=== PATIENT | female | born 1955 | race Caucasian/White ===

== ENCOUNTER 2017-05-21 09:17 | Emergency (ER) | payer MEDICAID ==
[~2017-05-21] VITALS: Ht 167.6 cm; Wt 120.0 kg
[~2017-05-21 09:17] MED LIST: ALPR-475 PO; ALPR1TAB2 PO; AMLO2.5T2 PO; ASPI-496 PO; ATOR80TA75 PO; CARV-39 PO; CYCL5TAB PO; DEXA4TAB PO; FENT1PAT77 TD; LISI-424 PO; METO25TA91 PO; OMEP20CA9 PO; OXYC20TA2 PO; PRAS10TA4 PO; SERT50TA PO; TRAM50TA2 PO; [UNRECOGNIZED DRUG - CODE]; [UNRECOGNIZED DRUG - OTHER] PO
[2017-05-21 09:20] VITALS: BP 113/74
[2017-05-21] MEDS ORDERED: SIMV80TA3 PO (09:45)
[2017-05-21] MEDS ORDERED: ALPR1TAB2 PO (09:45)
[2017-05-21] MEDS ORDERED: PRAS10TA4 PO (09:45)
[2017-05-21] MEDS ORDERED: METF500T4 PO (09:45)
[2017-05-21] MEDS ORDERED: SODIUM CHLORIDE 0.9% 1,000 ML IV ONE (10:02)
[2017-05-21] MEDS ORDERED: SODIUM CHLORIDE FLUSH 10ML SYR IVF ONE (10:30)
[2017-05-21] MEDS ORDERED: ONDANSETRON 2MG/ML, 2ML IVPush ONE (10:30)
[2017-05-21] MEDS ORDERED: SODIUM CHLORIDE 0.9% 1,000ML IVBOLUS ONE (10:30)
[2017-05-21] MEDS ORDERED: KETOROLAC 30 MG/1 ML IVPush ONE (10:30)
[2017-05-21] MEDS ORDERED: ONDANSETRON 2MG/ML, 2ML ONE (10:35)
[2017-05-21] MEDS ORDERED: KETOROLAC 30 MG/1 ML ONE ×2 (10:35→11:40)
[2017-05-21 10:47] LABS: ASPARTATE AMINO TRANSFERASE 13 U/L (15-37); BLOOD UREA NITROGEN 13 mg/dL (7-18)
[2017-05-21 10:55] LABS: IS PT STATUS REG ER OR PRE ER? YES
[2017-05-21] MEDS ORDERED: ONDANSETRON ODT 4 MG ONE (11:40)
[2017-05-21] MEDS ORDERED: ONDANSETRON ODT 4 MG PO ONE (12:00)
[2017-05-21] MEDS ORDERED: KETOROLAC 30 MG/1 ML IM ONE (12:00)
[2017-05-21] MEDS ORDERED: HYDROmorphone 1 MG/ML, 1ML IM ONE (12:30)
[2017-05-21] MEDS ORDERED: HYDROmorphone 1 MG/ML, 1ML ONE (12:52)
== END 2017-05-21 13:04 | disposition home or self-care (01) ==
LOC: ED 09:36
DX: M79.1 Myalgia (principal); G89.29 Other chronic pain; I10 Essential (primary) hypertension; E11.9 Type 2 diabetes mellitus without complications; R11.2 Nausea with vomiting, unspecified
CPT/HCPCS: 36415; 71010; 80053; 81003; 82140; 83605; 84484; 85025; 93005; 96372; 99285; J1170; J1885; Q0162

== ENCOUNTER 2017-06-12 00:55 | Emergency (ER) | payer MEDICAID ==
[~2017-06-12] VITALS: Ht 167.6 cm; Wt 116.4 kg
[~2017-06-12 00:55] MED LIST changes: +METF500T4 PO; +SIMV80TA3 PO
[2017-06-12] MEDS ORDERED: HYDROcodone/APAP 5/325 TABLET PO PRN (01:30)
[2017-06-12] MEDS ORDERED: HYDROcodone/APAP 5/325 TABLET ONE ×2 (01:51→02:58)
[2017-06-12 03:01] VITALS: BP 139/89
== END 2017-06-12 03:03 | disposition home or self-care (01) ==
LOC: ED 02:57
DX: S16.1XXA Strain of muscle, fascia and tendon at neck level, initial encounter (principal); S39.012A Strain of muscle, fascia and tendon of lower back, initial encounter; S09.90XA Unspecified injury of head, initial encounter; K21.9 Gastro-esophageal reflux disease without esophagitis; I10 Essential (primary) hypertension; E11.9 Type 2 diabetes mellitus without complications; Y04.0XXA Assault by unarmed brawl or fight, initial encounter
CPT/HCPCS: 70450; 72110; 72125; 99284

== ENCOUNTER 2017-07-06 07:22 | Emergency (ER) | payer MEDICAID ==
[~2017-07-06] VITALS: Ht 167.6 cm; Wt 121.5 kg
[2017-07-06 07:26] VITALS: BP 172/108
[2017-07-06] MEDS ORDERED: KETOROLAC 30 MG/1 ML IM ONE (08:00)
[2017-07-06] MEDS ORDERED: OXYcodone/APAP 10/325MG TABLET PO ONE (08:00)
[2017-07-06] MEDS ORDERED: DIAZEPAM 5 MG TABLET PO ONE (08:00)
[2017-07-06] MEDS ORDERED: ONDANSETRON ODT 4 MG PO ONE (08:00)
[2017-07-06] MEDS ORDERED: HYDROmorphone 1 MG/ML, 1ML IM ONE (09:00)
== END 2017-07-06 09:16 | disposition home or self-care (01) ==
LOC: ED 09:10
DX: S39.012A Strain of muscle, fascia and tendon of lower back, initial encounter (principal); M54.2 Cervicalgia; E11.9 Type 2 diabetes mellitus without complications; I10 Essential (primary) hypertension; K21.9 Gastro-esophageal reflux disease without esophagitis; I25.2 Old myocardial infarction; W18.39XA Other fall on same level, initial encounter; Y93.89 Activity, other specified; Y92.89 Other specified places as the place of occurrence of the external cause; Y99.8 Other external cause status
CPT/HCPCS: 96372; 99284; J1170; J1885; J7512; Q0162

== ENCOUNTER 2017-10-26 23:10 | Inpatient (IN) | payer MEDICAID ==
[~2017-10-26] VITALS: Ht 167.6 cm; Wt 117.8 kg
[~2017-10-26 23:10] MED LIST changes: +ATOR-2 PO; -ATOR80TA75 PO
[2017-10-26] MEDS ORDERED: ONDANSETRON 2MG/ML, 2ML IVPush ONE (23:30)
[2017-10-26] MEDS ORDERED: HYDROmorphone 1 MG/ML, 1ML IM PRN (23:30)
[2017-10-26 23:47] LABS: HEMATOCRIT 37.9 % (34.6-47.8); HEMOGLOBIN 12.6 g/dL (11.7-16.4); WHITE BLOOD COUNT 8.1 x10^3/uL (3.4-10)
[2017-10-26] MEDS ORDERED: morphine SULFATE 10 MG/ML, 1ML ONE (23:47)
[2017-10-26] MEDS ORDERED: ONDANSETRON 2MG/ML, 2ML ONE (23:47)
[2017-10-26 23:56] LABS: BLOOD UREA NITROGEN 10 mg/dL (7-18)
[2017-10-26] MEDS: MORPHINE SULFATE 4 MG/ML, 1ML IVPush PRN (23:59)
[2017-10-27 00:01] LABS: IS PT STATUS REG ER OR PRE ER? YES
[2017-10-27] MEDS ORDERED: NITROGLYCERIN OINT 2%, 1GM TP ONE ×2 (00:28→00:30)
[2017-10-27] MEDS ORDERED: morphine SULFATE 10 MG/ML, 1ML ONE ×2 (00:29→02:17)
[2017-10-27] MEDS: MORPHINE SULFATE 4 MG/ML, 1ML IVPush PRN (00:45)
[2017-10-27] MEDS ORDERED: POTASSIUM CHLORIDE 20 MEQ TAB.ER.PRT PO ONE (01:00)
[2017-10-27] MEDS ORDERED: hydrALAzine 20 MG/ML, 1ML IV PRN (01:00)
[2017-10-27] MEDS ORDERED: BISACODYL 10 MG SUPP PR PRN (01:00)
[2017-10-27] MEDS ORDERED: OXYCODONE HCL 30 MG PO SCH (01:00)
[2017-10-27] MEDS ORDERED: POLYETHYLENE GLYCOL 17 GM PACKET PO PRN (01:00)
[2017-10-27] MEDS ORDERED: NITROGLYCERIN 0.4 MG BOTTLE (25 TABS) SL PRN (01:00)
[2017-10-27] MEDS ORDERED: SIMVASTATIN 40 MG TABLET PO SCH (01:00)
[2017-10-27 01:40] VITALS: BP 145/91
[2017-10-27] MEDS: OXYCODONE MC SCH ×2 (02:00→03:00)
[2017-10-27] MEDS: HEPARIN 5,000 UNITS/ML, 1ML SQ SCH ×3 (02:21→18:30)
[2017-10-27] MEDS: morphine SULFATE 10 MG/ML, 1ML IVPush PRN ×4 (02:38→18:30)
[2017-10-27] MEDS: OXYcodone IR 5MG TABLET PO PRN ×4 (04:23→21:37)
[2017-10-27] MEDS ORDERED: TEMPLATE NON-FORMULARY MED. (Oxycodone Hcl** 20 MG) PO PRN (05:00)
[2017-10-27 06:18] LABS: IS PT STATUS REG ER OR PRE ER? NO
[2017-10-27 07:36] VITALS: BP 124/80
[2017-10-27] MEDS: SENNA/DOCUSATE TABLET PO SCH (08:31)
[2017-10-27] MEDS: PRASUGREL 10 MG TABLET PO SCH (08:33)
[2017-10-27] MEDS: ASPIRIN 81 MG TABLET EC PO SCH (08:33)
[2017-10-27] MEDS: OMEPRAZOLE 20 MG CAPSULE.DR PO SCH ×2 (08:33→21:37)
[2017-10-27] MEDS: metFORMIN 500 MG TABLET PO SCH ×2 (08:33→21:37)
[2017-10-27] MEDS: ALPRazolam 1MG TABLET PO SCH (08:33)
[2017-10-27] MEDS: CARVEDILOL 25 MG TABLET PO SCH ×2 (08:33→21:37)
[2017-10-27] MEDS: SODIUM CHLORIDE FLUSH 10ML SYR IVF SCH ×2 (08:33→21:00)
[2017-10-27] MEDS: LISINOPRIL 10 MG TABLET PO SCH (08:34)
[2017-10-27] MEDS: SERTRALINE 100MG TABLET PO SCH (09:00)
[2017-10-27 11:33] LABS: IS PT STATUS REG ER OR PRE ER? NO
[2017-10-27 13:00] VITALS: BP 137/80
[2017-10-27] MEDS: ACETAMINOPHEN 325 MG TABLET PO PRN (18:30)
[2017-10-27 19:46] VITALS: BP 132/81
[2017-10-27] MEDS: SIMVASTATIN 20 MG TABLET PO SCH (21:37)
[2017-10-27] MEDS: RANOLAZINE 500 MG TAB.ER.12H PO SCH (22:34)
[2017-10-28] MEDS: morphine SULFATE 10 MG/ML, 1ML IVPush PRN (00:24)
[2017-10-28] MEDS: OXYcodone IR 5MG TABLET PO PRN ×4 (01:49→22:07)
[2017-10-28] MEDS: HEPARIN 5,000 UNITS/ML, 1ML SQ SCH ×3 (01:50→17:40)
[2017-10-28 01:55] VITALS: BP 144/89
[2017-10-28] MEDS: ACETAMINOPHEN 325 MG TABLET PO PRN (05:41)
[2017-10-28] MEDS: ASPIRIN 81 MG TABLET EC PO SCH (05:41)
[2017-10-28 07:58] VITALS: BP 138/80
[2017-10-28] MEDS: RANOLAZINE 500 MG TAB.ER.12H PO SCH ×2 (08:56→22:07)
[2017-10-28] MEDS: PRASUGREL 10 MG TABLET PO SCH (08:57)
[2017-10-28] MEDS: OMEPRAZOLE 20 MG CAPSULE.DR PO SCH ×2 (08:57→22:07)
[2017-10-28] MEDS: LISINOPRIL 10 MG TABLET PO SCH (08:57)
[2017-10-28] MEDS: ALPRazolam 1MG TABLET PO SCH (08:57)
[2017-10-28] MEDS: metFORMIN 500 MG TABLET PO SCH ×2 (08:57→22:07)
[2017-10-28] MEDS: SERTRALINE 100MG TABLET PO SCH (08:57)
[2017-10-28] MEDS: CARVEDILOL 25 MG TABLET PO SCH ×2 (08:57→22:07)
[2017-10-28] MEDS: SODIUM CHLORIDE FLUSH 10ML SYR IVF SCH ×2 (09:00→22:06)
[2017-10-28] MEDS: SENNA/DOCUSATE TABLET PO SCH (09:00)
[2017-10-28 15:09] VITALS: BP 119/77
[2017-10-28 19:46] VITALS: BP 119/77
[2017-10-28] MEDS: SIMVASTATIN 20 MG TABLET PO SCH (22:07)
[2017-10-29] MEDS: ONDANSETRON 2MG/ML, 2ML IVPush PRN ×2 (01:01→16:32)
[2017-10-29 01:12] VITALS: BP 103/68
[2017-10-29] MEDS: HEPARIN 5,000 UNITS/ML, 1ML SQ SCH ×3 (02:30→16:32)
[2017-10-29] MEDS: OXYcodone IR 5MG TABLET PO PRN ×2 (05:00→09:10)
[2017-10-29 08:07] VITALS: BP 120/70
[2017-10-29] MEDS: SENNA/DOCUSATE TABLET PO SCH (09:00)
[2017-10-29] MEDS: RANOLAZINE 500 MG TAB.ER.12H PO SCH ×2 (09:09→21:59)
[2017-10-29] MEDS: SODIUM CHLORIDE FLUSH 10ML SYR IVF SCH ×2 (09:09→21:39)
[2017-10-29] MEDS: metFORMIN 500 MG TABLET PO SCH ×2 (09:09→21:39)
[2017-10-29] MEDS: LISINOPRIL 10 MG TABLET PO SCH (09:10)
[2017-10-29] MEDS: CARVEDILOL 25 MG TABLET PO SCH ×2 (09:10→21:39)
[2017-10-29] MEDS: PRASUGREL 10 MG TABLET PO SCH (09:10)
[2017-10-29] MEDS: OMEPRAZOLE 20 MG CAPSULE.DR PO SCH ×2 (09:10→21:39)
[2017-10-29] MEDS: SERTRALINE 100MG TABLET PO SCH (09:10)
[2017-10-29] MEDS: ASPIRIN 81 MG TABLET EC PO SCH (09:10)
[2017-10-29] MEDS: ALPRazolam 1MG TABLET PO SCH (09:10)
[2017-10-29 14:29] LABS: ABG COLLECTION SITE RIGHT BRACHIAL
[2017-10-29 16:21] VITALS: BP 107/71
[2017-10-29] MEDS: ACETAMINOPHEN 325 MG TABLET PO PRN (16:32)
[2017-10-29 19:59] VITALS: BP 112/76
[2017-10-29] MEDS: SIMVASTATIN 20 MG TABLET PO SCH (21:39)
[2017-10-30 01:39] VITALS: BP 120/73
[2017-10-30] MEDS: HEPARIN 5,000 UNITS/ML, 1ML SQ SCH ×2 (02:30→10:30)
[2017-10-30 07:49] VITALS: BP 109/68
[2017-10-30 08:08] LABS: ABG COLLECTION SITE LEFT RADIAL; COLLATERAL CIRCULATION TESTING NORMAL
[2017-10-30] MEDS: SODIUM CHLORIDE FLUSH 10ML SYR IVF SCH (08:13)
[2017-10-30] MEDS: CARVEDILOL 25 MG TABLET PO SCH (08:13)
[2017-10-30] MEDS: ASPIRIN 81 MG TABLET EC PO SCH (08:13)
[2017-10-30] MEDS: PRASUGREL 10 MG TABLET PO SCH (08:14)
[2017-10-30] MEDS: metFORMIN 500 MG TABLET PO SCH (08:14)
[2017-10-30] MEDS: SERTRALINE 100MG TABLET PO SCH (08:15)
[2017-10-30] MEDS: ACETAMINOPHEN 325 MG TABLET PO PRN ×2 (08:15→13:11)
[2017-10-30] MEDS: RANOLAZINE 500 MG TAB.ER.12H PO SCH (08:15)
[2017-10-30] MEDS: LISINOPRIL 10 MG TABLET PO SCH (08:15)
[2017-10-30] MEDS: SENNA/DOCUSATE TABLET PO SCH (08:15)
[2017-10-30] MEDS: OMEPRAZOLE 20 MG CAPSULE.DR PO SCH (08:15)
[2017-10-30] MEDS: ALPRazolam 1MG TABLET PO SCH (09:00)
[2017-10-30] MEDS ORDERED: SIMV20TA3 PO (12:46)
[2017-10-30] MEDS ORDERED: RANO500T2 PO (12:46)
== END 2017-10-30 13:45 | disposition home or self-care (01) | DRG 303 ==
LOC: ED 23:59 → EDIP 10-27 00:52 → 5SO 10-27 01:31 → 3NE 10-29 19:28
PROVIDERS: ADMIT Hospitalist; ATTEND Hospitalist
DX: I25.110 Atherosclerotic heart disease of native coronary artery with unstable angina pectoris (principal); J96.10 Chronic respiratory failure, unspecified whether with hypoxia or hypercapnia; E44.1 Mild protein-calorie malnutrition; E66.01 Morbid (severe) obesity due to excess calories; I11.0 Hypertensive heart disease with heart failure; I50.9 Heart failure, unspecified; Z68.41 Body mass index [BMI] 40.0-44.9, adult; E11.9 Type 2 diabetes mellitus without complications; E66.9 Obesity, unspecified; E87.6 Hypokalemia; F41.1 Generalized anxiety disorder; G47.10 Hypersomnia, unspecified; G47.33 Obstructive sleep apnea (adult) (pediatric); K21.9 Gastro-esophageal reflux disease without esophagitis; M85.80 Other specified disorders of bone density and structure, unspecified site; K44.9 Diaphragmatic hernia without obstruction or gangrene; M79.7 Fibromyalgia; I25.2 Old myocardial infarction; Z79.82 Long term (current) use of aspirin; Z83.3 Family history of diabetes mellitus; Z91.19 Patient's noncompliance with other medical treatment and regimen; Z95.5 Presence of coronary angioplasty implant and graft; Z88.8 Allergy status to other drugs, medicaments and biological substances
CPT/HCPCS: 36415; 36600; 71010; 80048; 82040; 82803; 83036; 84484; 85025; 93005; 96374; 96375; J1644; J2405; J2270

== ENCOUNTER 2017-11-28 19:43 | Emergency (ER) | payer MEDICAID ==
[~2017-11-28] VITALS: Ht 167.6 cm; Wt 114.3 kg
[~2017-11-28 19:43] MED LIST changes: +RANO500T2 PO; +SIMV20TA3 PO
[2017-11-28] MEDS ORDERED: ASPIRIN 81 MG TABLET CHEW ONE (21:23)
[2017-11-28] MEDS ORDERED: SODIUM CHLORIDE FLUSH 10ML SYR IVF ONE (21:30)
[2017-11-28] MEDS ORDERED: ASPIRIN 81 MG TABLET CHEW PO ONE (21:30)
[2017-11-28 21:37] LABS: BASOPHILS # (AUTO) 0.02 x10^3/uL (0-0.1); BASOPHILS % (AUTO) 0 % (0-1); EOSINOPHILS # (AUTO) 0.16 x10^3/uL (0-0.4); EOSINOPHILS % (AUTO) 2 % (1-7); LYMPHOCYTES # (AUTO) 1.54 x10^3/uL (1-3.4); LYMPHOCYTES % (AUTO) 18 % (22-44); MD NO; MEAN CORPUSCULAR HEMOGLOBIN 27.8 pg (27.0-34.8); MEAN CORPUSCULAR HGB CONC 32.8 g/dL (32.4-35.8); MEAN CORPUSCULAR VOLUME 84.7 fL (80-100); MONOCYTES # (AUTO) 0.43 x10^3/uL (0.2-0.8); MONOCYTES % (AUTO) 5 % (2-9); NEUTROPHILS # (AUTO) 6.64 x10^3/uL (1.8-6.8); NEUTROPHILS % (AUTO) 76 % (42-75); PLATELET COUNT 252 x10^3/uL (130-400); RED BLOOD COUNT 4.99 x10^6/uL (3.82-5.3); RED CELL DISTRIBUTION WIDTH 15.5 % (9.6-15.2)
[2017-11-28 21:46] LABS: INTERNATIONAL NORMALIZED RATIO 0.98 (0.93-1.1); PROTHROMBIN TIME 10.2 Seconds (9.6-11.5)
[2017-11-28 21:50] LABS: ALANINE AMINOTRANSFERASE 14 U/L (12-78); ALBUMIN 3.3 g/dL (3.4-5.0); ANION GAP 5 mmol/L (5-15); CALCIUM 8.6 mg/dL (8.5-10.1); CHLORIDE 109 mmol/L (98-107); CREATININE 0.54 mg/dL (0.55-1.02)
[2017-11-28 21:54] LABS: ALKALINE PHOSPHATASE 93 U/L (45-117); TOTAL PROTEIN 7.3 g/dL (6.4-8.2); TROPONIN I 0.023 ng/mL (0.000-0.045)
[2017-11-28 21:55] LABS: BILIRUBIN,TOTAL < 0.1 mg/dL (0.2-1.0)
[2017-11-28] MEDS ORDERED: ONDANSETRON 2MG/ML, 2ML IVPush ONE (22:30)
[2017-11-28] MEDS ORDERED: ONDANSETRON 2MG/ML, 2ML ONE ×2 (22:31→22:40)
[2017-11-28] MEDS ORDERED: MORPHINE SULFATE 4 MG/ML, 1ML ONE ×3 (22:31→23:48)
[2017-11-28] MEDS: MORPHINE SULFATE 4 MG/ML, 1ML IVPush PRN ×2 (22:41→23:54)
[2017-11-29 00:41] LABS: TROPONIN I 0.023 ng/mL (0.000-0.045)
[2017-11-29 02:02] VITALS: BP 160/89
== END 2017-11-29 02:04 | disposition home or self-care (01) ==
LOC: ED 20:54
DX: M54.6 Pain in thoracic spine (principal); R07.9 Chest pain, unspecified; G89.4 Chronic pain syndrome; E11.9 Type 2 diabetes mellitus without complications; I11.9 Hypertensive heart disease without heart failure; I25.2 Old myocardial infarction; K21.9 Gastro-esophageal reflux disease without esophagitis; Z79.82 Long term (current) use of aspirin; Z98.1 Arthrodesis status
CPT/HCPCS: 36415; 71045; 72125; 80053; 83690; 84484; 85025; 85610; 85730; 93005; 96374; 96375; 96376; 99285; J2405

== ENCOUNTER 2017-12-27 12:33 | Emergency (ER) | payer MEDICAID ==
[~2017-12-27] VITALS: Ht 154.9 cm; Wt 116.0 kg
[2017-12-27 12:41] VITALS: BP 161/124
[2017-12-27] MEDS ORDERED: GABA300C10 PO (13:36)
[2017-12-27] MEDS ORDERED: METH750T87 PO (13:36)
[2017-12-27] MEDS ORDERED: RANI300C PO (13:36)
[2017-12-27] MEDS ORDERED: HYDROcodone/APAP 5/325 TABLET ONE (13:43)
[2017-12-27] MEDS ORDERED: HYDROcodone/APAP 5/325 TABLET PO ONE (14:00)
[2017-12-27] MEDS ORDERED: METHOCARBAMOL 750 MG TABLET PO ONE (14:00)
[2017-12-27] MEDS ORDERED: METHOCARBAMOL 750 MG TABLET ONE (14:02)
[2017-12-27] MEDS ORDERED: KETOROLAC 30 MG/1 ML ONE (14:48)
[2017-12-27] MEDS ORDERED: KETOROLAC 30 MG/1 ML IM ONE (15:00)
== END 2017-12-27 15:27 | disposition home or self-care (01) ==
LOC: ED 15:20
DX: S16.1XXA Strain of muscle, fascia and tendon at neck level, initial encounter (principal); M25.512 Pain in left shoulder; E11.9 Type 2 diabetes mellitus without complications; I10 Essential (primary) hypertension; K21.9 Gastro-esophageal reflux disease without esophagitis; I25.2 Old myocardial infarction; X58.XXXA Exposure to other specified factors, initial encounter; Y93.89 Activity, other specified; Y99.8 Other external cause status; Y92.89 Other specified places as the place of occurrence of the external cause
CPT/HCPCS: 73030; 96372; 99284; J1885

== ENCOUNTER 2018-02-13 19:21 | Inpatient (IN) | payer MEDICAID ==
[2018-02-12 23:40] VITALS: BP 142/83
[~2018-02-13] VITALS: Ht 167.6 cm; Wt 119.5 kg
[~2018-02-13 19:21] MED LIST changes: +GABA300C10 PO; +METH750T87 PO; +RANI300C PO
[2018-02-13] MEDS ORDERED: ACETAMINOPHEN 325 MG TABLET PO ONE (19:30)
[2018-02-13] MEDS ORDERED: PLEASE ENTER HEIGHT AND WEIGHT MC SCH (20:00)
[2018-02-13 20:32] LABS: BASOPHILS % (AUTO) 0 % (0-1); EOSINOPHILS % (AUTO) 3 % (1-7); LYMPHOCYTES # (AUTO) 1.11 x10^3/uL (1-3.4); LYMPHOCYTES % (AUTO) 15 % (22-44); MD NO; MEAN CORPUSCULAR HEMOGLOBIN 29.9 pg (27.0-34.8); MEAN CORPUSCULAR HGB CONC 33.9 g/dL (32.4-35.8); MEAN CORPUSCULAR VOLUME 88.4 fL (80-100); MEAN PLATELET VOLUME 9.1 fL (7.4-10.4); MONOCYTES # (AUTO) 0.26 x10^3/uL (0.2-0.8); MONOCYTES % (AUTO) 4 % (2-9); NEUTROPHILS # (AUTO) 5.65 x10^3/uL (1.8-6.8); NEUTROPHILS % (AUTO) 78 % (42-75); PLATELET COUNT 197 x10^3/uL (130-400); RED BLOOD COUNT 4.01 x10^6/uL (3.82-5.3); RED CELL DISTRIBUTION WIDTH 16.4 % (9.6-15.2)
[2018-02-13] MEDS ORDERED: ACETAMINOPHEN 325 MG TABLET ONE (20:39)
[2018-02-13 20:42] LABS: ALANINE AMINOTRANSFERASE 14 U/L (12-78); ALBUMIN 3.2 g/dL (3.4-5.0); ANION GAP 5 mmol/L (5-15); CALCIUM 8.5 mg/dL (8.5-10.1); CHLORIDE 103 mmol/L (98-107); CREATININE 0.68 mg/dL (0.55-1.02)
[2018-02-13 20:44] LABS: ALKALINE PHOSPHATASE 71 U/L (45-117); BILIRUBIN,TOTAL 0.4 mg/dL (0.2-1.0); TOTAL PROTEIN 6.8 g/dL (6.4-8.2); TROPONIN I 0.066 ng/mL (0.000-0.045)
[2018-02-13] MEDS ORDERED: NITROGLYCERIN 0.4 MG BOTTLE (25 TABS) SL PRN (22:30)
[2018-02-13] MEDS ORDERED: BISACODYL 10 MG SUPP PR PRN (22:30)
[2018-02-13] MEDS ORDERED: hydrALAzine 20 MG/ML, 1ML IVPush PRN (22:30)
[2018-02-13] MEDS ORDERED: POLYETHYLENE GLYCOL 17 GM PACKET PO PRN (22:30)
[2018-02-13] MEDS ORDERED: ONDANSETRON ODT 4 MG PO PRN (22:30)
[2018-02-13 22:45] LABS: HEMOGLOBIN A1C 5.5 % (4.2-6.3)
[2018-02-14] MEDS ORDERED: FAMOTIDINE 20 MG TABLET ONE (00:04)
[2018-02-14] MEDS: GABAPENTIN 400 MG CAPSULE PO SCH ×4 (00:09→20:15)
[2018-02-14] MEDS: METHOCARBAMOL 750 MG TABLET PO SCH ×4 (00:10→20:16)
[2018-02-14] MEDS: CARVEDILOL 25 MG TABLET PO SCH ×3 (00:10→20:16)
[2018-02-14] MEDS: SIMVASTATIN 20 MG TABLET PO SCH ×2 (00:10→20:15)
[2018-02-14] MEDS: FAMOTIDINE 40 MG TABLET PO SCH ×4 (00:11→20:15)
[2018-02-14] MEDS: morphine SULFATE 10 MG/ML, 1ML IVPush PRN ×5 (00:12→23:49)
[2018-02-14] MEDS: HEPARIN 5,000 UNITS/ML, 1ML SQ SCH ×3 (00:12→16:00)
[2018-02-14] MEDS: SODIUM CHLORIDE FLUSH 10ML SYR IVF SCH ×3 (00:12→20:17)
[2018-02-14] MEDS: ACETAMINOPHEN 325 MG TABLET PO PRN ×3 (02:18→13:14)
[2018-02-14 02:25] VITALS: BP 135/82
[2018-02-14 03:06] LABS: TROPONIN I 0.048 ng/mL (0.000-0.045)
[2018-02-14 04:57] LABS: BASOPHILS % (AUTO) 0 % (0-1); EOSINOPHILS # (AUTO) 0.24 x10^3/uL (0-0.4); EOSINOPHILS % (AUTO) 4 % (1-7); LYMPHOCYTES # (AUTO) 1.35 x10^3/uL (1-3.4); LYMPHOCYTES % (AUTO) 21 % (22-44); MD NO; MEAN CORPUSCULAR HEMOGLOBIN 29.7 pg (27.0-34.8); MEAN CORPUSCULAR HGB CONC 33.3 g/dL (32.4-35.8); MEAN CORPUSCULAR VOLUME 89.1 fL (80-100); MEAN PLATELET VOLUME 9.1 fL (7.4-10.4); MONOCYTES # (AUTO) 0.31 x10^3/uL (0.2-0.8); MONOCYTES % (AUTO) 5 % (2-9); NEUTROPHILS # (AUTO) 4.56 x10^3/uL (1.8-6.8); NEUTROPHILS % (AUTO) 71 % (42-75); PLATELET COUNT 220 x10^3/uL (130-400); RED BLOOD COUNT 4.01 x10^6/uL (3.82-5.3); RED CELL DISTRIBUTION WIDTH 15.9 % (9.6-15.2)
[2018-02-14 04:59] LABS: ALANINE AMINOTRANSFERASE 13 U/L (12-78); ANION GAP 5 mmol/L (5-15); CALCIUM 8.5 mg/dL (8.5-10.1); CHLORIDE 104 mmol/L (98-107); CREATININE 0.76 mg/dL (0.55-1.02)
[2018-02-14 05:02] LABS: ALKALINE PHOSPHATASE 75 U/L (45-117); BILIRUBIN,TOTAL 0.7 mg/dL (0.2-1.0); TOTAL PROTEIN 6.4 g/dL (6.4-8.2)
[2018-02-14 07:47] VITALS: BP 176/89
[2018-02-14] MEDS ORDERED: MORPHINE SULFATE 4 MG/ML, 1ML ONE (07:51)
[2018-02-14] MEDS: SENNA/DOCUSATE TABLET PO SCH (09:00)
[2018-02-14 09:12] LABS: TROPONIN I 0.043 ng/mL (0.000-0.045)
[2018-02-14] MEDS ORDERED: SODIUM CHLORIDE 0.9% 1,000 ML IV ONE (09:12)
[2018-02-14] MEDS: ASPIRIN 81 MG TABLET EC PO SCH (09:21)
[2018-02-14] MEDS: PRASUGREL 10 MG TABLET PO SCH (09:22)
[2018-02-14] MEDS: ALPRazolam 1MG TABLET PO SCH (09:22)
[2018-02-14] MEDS: LISINOPRIL 10 MG TABLET PO SCH (09:22)
[2018-02-14 11:26] LABS: INTERNATIONAL NORMALIZED RATIO 0.98 (0.93-1.1); PROTHROMBIN TIME 10.2 Seconds (9.6-11.5)
[2018-02-14 13:04] VITALS: BP 144/86
[2018-02-14] MEDS ORDERED: HEPARIN 1,000 UNITS/ML, 10ML ONE (15:41)
[2018-02-14] MEDS ORDERED: BIVALIRUDIN 250 MG ONE ×2 (15:41→15:49)
[2018-02-14] MEDS ORDERED: TICAGRELOR 90 MG TABLET ONE (15:41)
[2018-02-14] MEDS ORDERED: VERAPAMIL 2.5 MG/ML, 2ML ONE (15:41)
[2018-02-14] MEDS ORDERED: FENTANYL PF 100 MCG/2ML ONE (15:41)
[2018-02-14] MEDS ORDERED: MIDAZOLAM 1 MG/ML, 5ML ONE (15:41)
[2018-02-14] MEDS ORDERED: LIDOCAINE 2%, 2ML ONE (15:49)
[2018-02-14] MEDS ORDERED: LIDOCAINE-MPF 2% ,5ML ONE (16:18)
[2018-02-14 18:32] VITALS: BP 143/99
[2018-02-15 00:29] VITALS: BP 134/83
[2018-02-15] MEDS: HEPARIN 5,000 UNITS/ML, 1ML SQ SCH ×2 (00:33→08:38)
[2018-02-15] MEDS: morphine SULFATE 10 MG/ML, 1ML IVPush PRN ×2 (04:31→07:14)
[2018-02-15 05:11] LABS: ANION GAP 4 mmol/L (5-15); CALCIUM 8.8 mg/dL (8.5-10.1); CHLORIDE 101 mmol/L (98-107); CREATININE 0.71 mg/dL (0.55-1.02)
[2018-02-15 05:15] LABS: BASOPHILS # (AUTO) 0.02 x10^3/uL (0-0.1); BASOPHILS % (AUTO) 0 % (0-1); EOSINOPHILS # (AUTO) 0.14 x10^3/uL (0-0.4); EOSINOPHILS % (AUTO) 3 % (1-7); LYMPHOCYTES # (AUTO) 1.16 x10^3/uL (1-3.4); LYMPHOCYTES % (AUTO) 21 % (22-44); MD NO; MEAN CORPUSCULAR HEMOGLOBIN 29.1 pg (27.0-34.8); MEAN CORPUSCULAR HGB CONC 32.9 g/dL (32.4-35.8); MEAN CORPUSCULAR VOLUME 88.6 fL (80-100); MEAN PLATELET VOLUME 9.5 fL (7.4-10.4); MONOCYTES # (AUTO) 0.35 x10^3/uL (0.2-0.8); MONOCYTES % (AUTO) 6 % (2-9); NEUTROPHILS # (AUTO) 3.89 x10^3/uL (1.8-6.8); NEUTROPHILS % (AUTO) 70 % (42-75); PLATELET COUNT 188 x10^3/uL (130-400); RED BLOOD COUNT 4.12 x10^6/uL (3.82-5.3); RED CELL DISTRIBUTION WIDTH 15.8 % (9.6-15.2)
[2018-02-15 06:30] VITALS: BP 168/98
[2018-02-15] MEDS: GABAPENTIN 400 MG CAPSULE PO SCH (08:36)
[2018-02-15] MEDS: FAMOTIDINE 40 MG TABLET PO SCH (08:37)
[2018-02-15] MEDS: ASPIRIN 81 MG TABLET EC PO SCH (08:37)
[2018-02-15] MEDS: ALPRazolam 1MG TABLET PO SCH (08:37)
[2018-02-15] MEDS: METHOCARBAMOL 750 MG TABLET PO SCH (08:37)
[2018-02-15] MEDS: SODIUM CHLORIDE FLUSH 10ML SYR IVF SCH (08:38)
[2018-02-15] MEDS: PRASUGREL 10 MG TABLET PO SCH (08:38)
[2018-02-15] MEDS: SENNA/DOCUSATE TABLET PO SCH ×2 (08:38→08:40)
[2018-02-15] MEDS: LISINOPRIL 10 MG TABLET PO SCH (08:38)
[2018-02-15] MEDS: CARVEDILOL 25 MG TABLET PO SCH (08:38)
[2018-02-15] MEDS ORDERED: OxyconTIN ER 10 MG TAB.ER PO ONE (10:00)
== END 2018-02-15 11:25 | disposition home or self-care (01) | DRG 281 ==
LOC: ED 22:35 → EDIP 23:36 → 5SO 23:37
PROVIDERS: ADMIT Hospitalist; ATTEND Hospitalist
PROC: 4A023N7 Measurement of Cardiac Sampling and Pressure, Left Heart, Percutaneous Approach (ICD-10-PCS; principal; 2018-02-14)
PROC: B2111ZZ Fluoroscopy of Multiple Coronary Arteries using Low Osmolar Contrast (ICD-10-PCS; 2018-02-14)
PROC: B2151ZZ Fluoroscopy of Left Heart using Low Osmolar Contrast (ICD-10-PCS; 2018-02-14)
DX: I21.9 Acute myocardial infarction, unspecified (principal); E44.1 Mild protein-calorie malnutrition; J96.10 Chronic respiratory failure, unspecified whether with hypoxia or hypercapnia; I11.0 Hypertensive heart disease with heart failure; I50.9 Heart failure, unspecified; F11.20 Opioid dependence, uncomplicated; Z68.41 Body mass index [BMI] 40.0-44.9, adult; E11.9 Type 2 diabetes mellitus without complications; E66.9 Obesity, unspecified; E78.5 Hyperlipidemia, unspecified; G47.33 Obstructive sleep apnea (adult) (pediatric); G89.4 Chronic pain syndrome; I25.10 Atherosclerotic heart disease of native coronary artery without angina pectoris; I25.5 Ischemic cardiomyopathy; K21.9 Gastro-esophageal reflux disease without esophagitis; K44.9 Diaphragmatic hernia without obstruction or gangrene; M79.7 Fibromyalgia; M54.16 Radiculopathy, lumbar region; I25.2 Old myocardial infarction; Z79.82 Long term (current) use of aspirin; Z83.3 Family history of diabetes mellitus; Z87.891 Personal history of nicotine dependence; Z95.5 Presence of coronary angioplasty implant and graft; Z99.81 Dependence on supplemental oxygen
CPT/HCPCS: 36415; 71045; 80048; 80053; 83036; 84484; 85025; 85610; 85730; 93005; 93458; 99156; 99285; C1760; C1894; J0583; J1644; J2250; J3010; J3490; J2270; Q9967

== ENCOUNTER 2018-03-02 10:49 | Emergency (ER) | payer MEDICAID ==
[~2018-03-02] VITALS: Ht 167.6 cm; Wt 119.5 kg
[2018-03-02] MEDS ORDERED: MORPHINE SULFATE 4 MG/ML, 1ML IVPush PRN (11:30)
[2018-03-02] MEDS ORDERED: ONDANSETRON ODT 4 MG PO ONE (11:30)
[2018-03-02] MEDS ORDERED: OXYcodone/APAP 5/325MG TABLET PO ONE (11:30)
[2018-03-02] MEDS ORDERED: SODIUM CHLORIDE FLUSH 10ML SYR IVF ONE (11:30)
[2018-03-02] MEDS ORDERED: OXYcodone/APAP 5/325MG TABLET ONE (11:35)
[2018-03-02 12:12] LABS: TROPONIN I 0.049 ng/mL (0.000-0.045)
[2018-03-02] MEDS ORDERED: KETOROLAC 60 MG/2 ML IM ONE (13:00)
[2018-03-02] MEDS ORDERED: KETOROLAC 30 MG/1 ML ONE (13:04)
[2018-03-02 13:11] VITALS: BP 155/89
== END 2018-03-02 12:40 | disposition home or self-care (01) ==
LOC: ED 11:57
DX: S46.812A Strain of other muscles, fascia and tendons at shoulder and upper arm level, left arm, initial encounter (principal); E11.9 Type 2 diabetes mellitus without complications; I10 Essential (primary) hypertension; I25.10 Atherosclerotic heart disease of native coronary artery without angina pectoris; K21.9 Gastro-esophageal reflux disease without esophagitis; X58.XXXA Exposure to other specified factors, initial encounter; Y93.89 Activity, other specified; Y99.8 Other external cause status; Y92.89 Other specified places as the place of occurrence of the external cause
CPT/HCPCS: 36415; 84484; 93005; 96372; 99285; J1885

== ENCOUNTER 2018-03-03 00:19 | Emergency (ER) | payer MEDICAID ==
[~2018-03-03] VITALS: Ht 167.6 cm; Wt 114.0 kg
[2018-03-03] MEDS ORDERED: OXYcodone/APAP 10/325MG TABLET PO ONE (01:00)
[2018-03-03] MEDS ORDERED: OXYcodone/APAP 10/325MG TABLET ONE (01:06)
[2018-03-03 01:49] LABS: BASOPHILS # (AUTO) 0.04 x10^3/uL (0-0.1); BASOPHILS % (AUTO) 1 % (0-1); EOSINOPHILS # (AUTO) 0.13 x10^3/uL (0-0.4); EOSINOPHILS % (AUTO) 2 % (1-7); LYMPHOCYTES # (AUTO) 1.26 x10^3/uL (1-3.4); LYMPHOCYTES % (AUTO) 23 % (22-44); MD NO; MEAN CORPUSCULAR HEMOGLOBIN 29.9 pg (27.0-34.8); MEAN CORPUSCULAR HGB CONC 33.8 g/dL (32.4-35.8); MEAN CORPUSCULAR VOLUME 88.4 fL (80-100); MONOCYTES # (AUTO) 0.34 x10^3/uL (0.2-0.8); MONOCYTES % (AUTO) 6 % (2-9); NEUTROPHILS # (AUTO) 3.66 x10^3/uL (1.8-6.8); NEUTROPHILS % (AUTO) 67 % (42-75); PLATELET COUNT 302 x10^3/uL (130-400); RED BLOOD COUNT 3.99 x10^6/uL (3.82-5.3); RED CELL DISTRIBUTION WIDTH 15.6 % (9.6-15.2)
[2018-03-03 02:01] LABS: D-DIMER 0.37 ug/mlFEU (0.00-0.52); INTERNATIONAL NORMALIZED RATIO 1.01 (0.93-1.1); PROTHROMBIN TIME 10.4 Seconds (9.6-11.5)
[2018-03-03 02:02] LABS: ALBUMIN 3.2 g/dL (3.4-5.0); ANION GAP 7 mmol/L (5-15); CALCIUM 8.2 mg/dL (8.5-10.1); CHLORIDE 112 mmol/L (98-107); CREATININE 0.53 mg/dL (0.55-1.02)
[2018-03-03 02:05] LABS: TROPONIN I 0.059 ng/mL (0.000-0.045)
[2018-03-03 02:28] VITALS: BP 171/81
== END 2018-03-03 02:47 | disposition home or self-care (01) ==
LOC: ED 00:40
DX: R07.89 Other chest pain (principal); M54.2 Cervicalgia; M25.511 Pain in right shoulder; G89.29 Other chronic pain; I25.2 Old myocardial infarction; M79.7 Fibromyalgia; K21.9 Gastro-esophageal reflux disease without esophagitis; I10 Essential (primary) hypertension; E11.9 Type 2 diabetes mellitus without complications
CPT/HCPCS: 36415; 80048; 82040; 84484; 85025; 85379; 85610; 85730; 93005; 99285

== ENCOUNTER 2018-12-11 10:53 | Inpatient (IN) | payer MEDICAID ==
[~2018-12-11] VITALS: Ht 167.6 cm; Wt 110.5 kg
[~2018-12-11 10:53] MED LIST changes: +METF500T17 PO; -METF500T4 PO; +SIMV80TA18 PO; -SIMV80TA3 PO
[2018-12-11] MEDS ORDERED: MECLIZINE CHEWABLE 25 MG TAB PO ONE (11:30)
[2018-12-11] MEDS ORDERED: ACETAMINOPHEN 500 MG TABLET PO ONE (11:30)
[2018-12-11] MEDS ORDERED: SODIUM CHLORIDE FLUSH 10ML SYR IVF ONE (11:30)
[2018-12-11] MEDS ORDERED: MECLIZINE CHEWABLE 25 MG TAB ONE (11:59)
--- NOTE | 2018-12-11 12:03 | NUR ---
PT MEDICATED WITH MECLIZINE. PATIENT REQUESTING MORPHINE. DR. KATHLEEN NOTIFIED.
--- NOTE | 2018-12-11 12:04 | NUR ---
PT TO CT AT THIS TIME.
[2018-12-11] MEDS ORDERED: OXYC5TAB3 PO (12:05)
[2018-12-11 12:09] LABS: BASOPHILS # (AUTO) 0.03 x10^3/uL (0-0.1); BASOPHILS % (AUTO) 1 % (0-1); EOSINOPHILS # (AUTO) 0.23 x10^3/uL (0-0.4); EOSINOPHILS % (AUTO) 3 % (1-7); LYMPHOCYTES # (AUTO) 1.26 x10^3/uL (1-3.4); LYMPHOCYTES % (AUTO) 17 % (22-44); MD NO; MEAN CORPUSCULAR HEMOGLOBIN 27.3 pg (27.0-34.8); MEAN CORPUSCULAR HGB CONC 32.3 g/dL (32.4-35.8); MEAN CORPUSCULAR VOLUME 84.6 fL (80-100); MEAN PLATELET VOLUME 8.9 fL (7.4-10.4); MONOCYTES # (AUTO) 0.39 x10^3/uL (0.2-0.8); MONOCYTES % (AUTO) 5 % (2-9); NEUTROPHILS # (AUTO) 5.58 x10^3/uL (1.8-6.8); NEUTROPHILS % (AUTO) 75 % (42-75); PLATELET COUNT 242 x10^3/uL (130-400); RED BLOOD COUNT 4.12 x10^6/uL (3.82-5.3); RED CELL DISTRIBUTION WIDTH 16.8 % (9.6-15.2)
[2018-12-11 12:19] LABS: ALANINE AMINOTRANSFERASE 11 U/L (12-78); ALBUMIN 2.9 g/dL (3.4-5.0); ANION GAP 8 mmol/L (5-15); CALCIUM 8.2 mg/dL (8.5-10.1); CHLORIDE 111 mmol/L (98-107); CREATININE 0.63 mg/dL (0.55-1.02); SALICYLATE LEVEL 1.9 mg/dL (2.8-20.0)
[2018-12-11 12:24] LABS: ALKALINE PHOSPHATASE 119 U/L (45-117); BILIRUBIN,TOTAL 0.2 mg/dL (0.2-1.0); TOTAL PROTEIN 6.5 g/dL (6.4-8.2); TROPONIN I 0.023 ng/mL (0.000-0.045)
[2018-12-11] MEDS ORDERED: KETOROLAC 30 MG/1 ML ONE (12:56)
[2018-12-11] MEDS ORDERED: KETOROLAC 30 MG/1 ML IVPush ONE (13:00)
[2018-12-11] MEDS ORDERED: OXYcodone IR 5MG TABLET PO ONE (13:30)
[2018-12-11] MEDS ORDERED: OXYcodone IR 5MG TABLET ONE (13:39)
--- NOTE | 2018-12-11 14:23 | NUR ---
SBAR TELEPHONE HAND-OFF REPORT TO JESSICA GOFF.
[2018-12-11] MEDS ORDERED: POLYETHYLENE GLYCOL 17 GM PACKET PO PRN (14:30)
[2018-12-11] MEDS ORDERED: ONDANSETRON ODT 4 MG PO PRN (14:30)
[2018-12-11] MEDS ORDERED: ONDANSETRON 2MG/ML, 2ML IVPush PRN (14:30)
[2018-12-11] MEDS ORDERED: LABETALOL 5MG/ML, 20ML IVPush PRN (14:30)
[2018-12-11 14:35] LABS: FREE T4 (FREE THYROXINE) 1.21 ng/dL (0.76-1.46)
--- NOTE | 2018-12-11 14:55 | NUR ---
SBAR TELEHPHONE HAND-OFF REPORT GIVEN TO JESSICA RICO. PT READY TO GO TO HOSPITAL ROOM AFTER PIV INSERTION.
[2018-12-11] MEDS ORDERED: SODIUM CHLORIDE 0.9% 1,000 ML IV SCH (15:00)
[2018-12-11] MEDS ORDERED: methylPREDNISolone SOD SUCC 125 MG/2 ML IVPush ONE (15:00)
[2018-12-11 16:20] VITALS: BP 109/75
[2018-12-11] MEDS: ENOXAPARIN 40 MG/0.4 ML SQ SCH (16:52)
[2018-12-11] MEDS ORDERED: MAGNESIUM SULFATE PMX 2GM/50ML 50 ML IV ONE (17:00)
[2018-12-11] MEDS ORDERED: EMPA10TA PO (17:10)
[2018-12-11] MEDS ORDERED: SPIR25TA PO (17:10)
[2018-12-11] MEDS ORDERED: CLOP75TA52 PO (17:10)
[2018-12-11] MEDS ORDERED: ATOR40TA78 PO (17:10)
[2018-12-11] MEDS ORDERED: ROSU40TA PO (17:10)
[2018-12-11] MEDS: METHOCARBAMOL 750 MG TABLET PO PRN ×2 (17:38→23:45)
[2018-12-11] MEDS: CARVEDILOL 6.25 MG TABLET PO SCH (17:39)
[2018-12-11] MEDS: MORPHINE SULFATE 4 MG/ML, 1ML IVPush PRN ×2 (18:33→22:44)
[2018-12-11 19:35] VITALS: BP 101/68
[2018-12-11] MEDS: ATORVASTATIN 40 MG TABLET PO SCH (20:02)
[2018-12-11] MEDS: OXYcodone IR 5MG TABLET PO PRN (20:02)
[2018-12-11] MEDS: FAMOTIDINE 20 MG TABLET PO SCH (20:03)
[2018-12-11] MEDS ORDERED: FAMOTIDINE 20 MG/2 ML IVPush SCH (21:00)
[2018-12-11] MEDS: ACETAMINOPHEN 325 MG TABLET PO PRN (23:06)
[2018-12-11] MEDS: LIDODERM 5% PATCH TD SCH (23:07)
[2018-12-12 00:58] VITALS: BP 115/77
[2018-12-12] MEDS: OXYcodone IR 5MG TABLET PO PRN ×3 (02:09→17:47)
[2018-12-12] MEDS: MORPHINE SULFATE 4 MG/ML, 1ML IVPush PRN (02:46)
[2018-12-12] MEDS: ACETAMINOPHEN 325 MG TABLET PO PRN ×3 (05:18→22:01)
[2018-12-12] MEDS: CARVEDILOL 6.25 MG TABLET PO SCH ×2 (05:18→17:51)
[2018-12-12 05:47] LABS: BASOPHILS # (AUTO) 0.01 x10^3/uL (0-0.1); BASOPHILS % (AUTO) 0 % (0-1); EOSINOPHILS % (AUTO) 0 % (1-7); LYMPHOCYTES # (AUTO) 0.33 x10^3/uL (1-3.4); LYMPHOCYTES % (AUTO) 5 % (22-44); MD NO; MEAN CORPUSCULAR HGB CONC 33.1 g/dL (32.4-35.8); MEAN CORPUSCULAR VOLUME 84.6 fL (80-100); MEAN PLATELET VOLUME 9.4 fL (7.4-10.4); MONOCYTES # (AUTO) 0.04 x10^3/uL (0.2-0.8); MONOCYTES % (AUTO) 1 % (2-9); NEUTROPHILS # (AUTO) 6.43 x10^3/uL (1.8-6.8); NEUTROPHILS % (AUTO) 94 % (42-75); PLATELET COUNT 247 x10^3/uL (130-400); RED BLOOD COUNT 4.46 x10^6/uL (3.82-5.3); RED CELL DISTRIBUTION WIDTH 16.6 % (9.6-15.2)
[2018-12-12 05:52] LABS: ALBUMIN 2.8 g/dL (3.4-5.0); ANION GAP 7 mmol/L (5-15); CALCIUM 8.8 mg/dL (8.5-10.1); CHLORIDE 109 mmol/L (98-107)
[2018-12-12 06:05] LABS: ALANINE AMINOTRANSFERASE 15 U/L (12-78); ALKALINE PHOSPHATASE 146 U/L (45-117); BILIRUBIN,TOTAL 0.4 mg/dL (0.2-1.0); CREATININE 0.74 mg/dL (0.55-1.02); THYROID STIMULATING HORMONE 0.545 mIU/L (0.358-3.740)
[2018-12-12 06:55] VITALS: BP 121/76
[2018-12-12 08:31] VITALS: BP 135/87
[2018-12-12] MEDS: METHOCARBAMOL 750 MG TABLET PO PRN ×2 (08:32→17:47)
[2018-12-12] MEDS: SENNA/DOCUSATE TABLET PO SCH (09:00)
[2018-12-12] MEDS: LISINOPRIL 10 MG TABLET PO SCH (10:17)
[2018-12-12] MEDS: CLOPIDOGREL 75 MG TABLET PO SCH (10:17)
[2018-12-12] MEDS: FAMOTIDINE 20 MG TABLET PO SCH ×2 (10:17→21:41)
[2018-12-12] MEDS: SPIRONOLACTONE 25 MG TABLET PO SCH (10:17)
[2018-12-12] MEDS: ASPIRIN 81 MG TABLET EC PO SCH (10:17)
[2018-12-12] MEDS ORDERED: SODIUM CHLORIDE 0.9%, 250ML IVBOLUS ONE (12:00)
[2018-12-12] MEDS ORDERED: KETOROLAC 30 MG/1 ML IVPush ONE ×2 (12:37→13:30)
[2018-12-12] MEDS ORDERED: KETOROLAC 30 MG/1 ML ONE (12:44)
[2018-12-12 12:57] VITALS: BP 132/82
[2018-12-12] MEDS: ENOXAPARIN 40 MG/0.4 ML SQ SCH (13:34)
[2018-12-12 20:43] VITALS: BP 144/79
[2018-12-12] MEDS: ATORVASTATIN 40 MG TABLET PO SCH (21:41)
[2018-12-13] VITALS (7 sets, daily range): BP systolic 107–150; BP diastolic 68–88
[2018-12-13] MEDS: OXYcodone IR 5MG TABLET PO PRN ×3 (00:19→20:19)
[2018-12-13] MEDS: METHOCARBAMOL 750 MG TABLET PO PRN ×3 (00:19→20:19)
[2018-12-13 00:41] LABS: MICROSCOPIC AUTO
[2018-12-13 00:44] LABS: CULTURE INDICATED? YES
[2018-12-13] MEDS: LIDODERM 5% PATCH TD SCH ×2 (01:20)
[2018-12-13] MEDS: ACETAMINOPHEN 325 MG TABLET PO PRN (02:36)
[2018-12-13] MEDS ORDERED: SUMATRIPTAN 6MG/0.5ML SQ ONE (03:30)
[2018-12-13] MEDS ORDERED: LORazepam 2 MG/ML, 1ML ONE (08:03)
[2018-12-13] MEDS ORDERED: LORazepam 2 MG/ML, 1ML IVPush ONE (08:30)
[2018-12-13] MEDS ORDERED: GADOBUTROL 10 MMOL/10 ML PFS ONE (08:48)
[2018-12-13] MEDS: SENNA/DOCUSATE TABLET PO SCH (09:00)
[2018-12-13] MEDS: CLOPIDOGREL 75 MG TABLET PO SCH (09:54)
[2018-12-13] MEDS: ASPIRIN 81 MG TABLET EC PO SCH (09:54)
[2018-12-13] MEDS: FAMOTIDINE 20 MG TABLET PO SCH ×2 (09:54→20:20)
[2018-12-13] MEDS: SPIRONOLACTONE 25 MG TABLET PO SCH (09:55)
[2018-12-13] MEDS: CARVEDILOL 6.25 MG TABLET PO SCH ×2 (09:55→20:19)
[2018-12-13] MEDS: LISINOPRIL 10 MG TABLET PO SCH (09:55)
[2018-12-13] MEDS: CEFTRIAXONE PMX 2GM/50ML 50 ML IV SCH (10:40)
[2018-12-13] MEDS ORDERED: HYDROmorphone 2 MG/ML, 1ML IVPush ONE (13:30)
[2018-12-13] MEDS: OxyconTIN ER 10 MG TAB.ER PO SCH (13:33)
[2018-12-13] MEDS: ENOXAPARIN 40 MG/0.4 ML SQ SCH (13:33)
[2018-12-13] MEDS ORDERED: SUMATRIPTAN 6MG/0.5ML SQ PRN (17:30)
[2018-12-13] MEDS: ALPRazolam 1MG TABLET PO PRN (20:19)
[2018-12-13] MEDS: ATORVASTATIN 40 MG TABLET PO SCH (20:20)
[2018-12-13] MEDS: GABAPENTIN 400 MG CAPSULE PO SCH (20:20)
[2018-12-14] MEDS: OxyconTIN ER 10 MG TAB.ER PO SCH ×3 (00:39→22:12)
[2018-12-14 00:43] VITALS: BP 104/71
[2018-12-14] MEDS: OXYcodone IR 5MG TABLET PO PRN ×3 (03:07→16:47)
[2018-12-14] MEDS: ACETAMINOPHEN 325 MG TABLET PO PRN (04:12)
[2018-12-14] MEDS ORDERED: SUMATRIPTAN 6MG/0.5ML SQ ONE (05:47)
[2018-12-14 05:57] LABS: BASOPHILS # (AUTO) 0.02 x10^3/uL (0-0.1); BASOPHILS % (AUTO) 0 % (0-1); EOSINOPHILS % (AUTO) 0 % (1-7); LYMPHOCYTES # (AUTO) 1.52 x10^3/uL (1-3.4); LYMPHOCYTES % (AUTO) 14 % (22-44); MD NO; MEAN CORPUSCULAR HEMOGLOBIN 27.6 pg (27.0-34.8); MEAN CORPUSCULAR HGB CONC 32.5 g/dL (32.4-35.8); MEAN CORPUSCULAR VOLUME 84.8 fL (80-100); MEAN PLATELET VOLUME 9.3 fL (7.4-10.4); MONOCYTES # (AUTO) 0.68 x10^3/uL (0.2-0.8); MONOCYTES % (AUTO) 6 % (2-9); NEUTROPHILS # (AUTO) 9.07 x10^3/uL (1.8-6.8); NEUTROPHILS % (AUTO) 80 % (42-75); PLATELET COUNT 261 x10^3/uL (130-400); RED BLOOD COUNT 4.43 x10^6/uL (3.82-5.3); RED CELL DISTRIBUTION WIDTH 16.9 % (9.6-15.2)
[2018-12-14 06:02] LABS: ALBUMIN 2.5 g/dL (3.4-5.0); ANION GAP 6 mmol/L (5-15); CALCIUM 8.5 mg/dL (8.5-10.1); CHLORIDE 109 mmol/L (98-107); CREATININE 0.67 mg/dL (0.55-1.02)
[2018-12-14 06:44] VITALS: BP 127/81
[2018-12-14] MEDS: CARVEDILOL 6.25 MG TABLET PO SCH ×2 (07:30→16:47)
[2018-12-14] MEDS: CLOPIDOGREL 75 MG TABLET PO SCH (07:58)
[2018-12-14] MEDS: SPIRONOLACTONE 25 MG TABLET PO SCH (07:58)
[2018-12-14] MEDS: GABAPENTIN 400 MG CAPSULE PO SCH ×3 (07:58→21:08)
[2018-12-14] MEDS: FAMOTIDINE 20 MG TABLET PO SCH ×2 (07:58→21:08)
[2018-12-14] MEDS: ASPIRIN 81 MG TABLET EC PO SCH (07:58)
[2018-12-14] MEDS: METHOCARBAMOL 750 MG TABLET PO PRN ×3 (07:58→22:12)
[2018-12-14] MEDS: LIDODERM 5% PATCH TD SCH (08:00)
[2018-12-14] MEDS: LISINOPRIL 10 MG TABLET PO SCH (08:04)
[2018-12-14] MEDS: SENNA/DOCUSATE TABLET PO SCH (08:06)
[2018-12-14 08:43] VITALS: BP 134/82
[2018-12-14] MEDS: CEFTRIAXONE PMX 2GM/50ML 50 ML IV SCH (10:52)
[2018-12-14] MEDS: MORPHINE SULFATE 4 MG/ML, 1ML IVPush PRN ×2 (12:55→17:55)
[2018-12-14] MEDS: ENOXAPARIN 40 MG/0.4 ML SQ SCH (13:45)
[2018-12-14 14:02] VITALS: BP 119/85
[2018-12-14 19:23] VITALS: BP 103/71
[2018-12-14] MEDS ORDERED: MAGNESIUM OXIDE 400 MG TABLET PO ONE (20:00)
[2018-12-14] MEDS ORDERED: SUMATRIPTAN 6MG/0.5ML SQ PRN (20:00)
[2018-12-14] MEDS: ATORVASTATIN 40 MG TABLET PO SCH (21:08)
[2018-12-15] MEDS: OXYcodone IR 5MG TABLET PO PRN ×4 (01:02→22:15)
[2018-12-15] MEDS: ALPRazolam 1MG TABLET PO PRN ×4 (01:02→22:15)
[2018-12-15 01:45] VITALS: BP 105/73
[2018-12-15] MEDS: CARVEDILOL 6.25 MG TABLET PO SCH ×2 (05:09→17:31)
[2018-12-15] MEDS: ACETAMINOPHEN 325 MG TABLET PO PRN (05:09)
[2018-12-15] MEDS: OxyconTIN ER 10 MG TAB.ER PO SCH ×3 (06:05→22:15)
[2018-12-15] MEDS: METHOCARBAMOL 750 MG TABLET PO PRN (06:05)
[2018-12-15 07:06] VITALS: BP 95/66
[2018-12-15] MEDS: LISINOPRIL 10 MG TABLET PO SCH (08:51)
[2018-12-15] MEDS: SPIRONOLACTONE 25 MG TABLET PO SCH (08:51)
[2018-12-15] MEDS: FAMOTIDINE 20 MG TABLET PO SCH ×2 (08:52→20:35)
[2018-12-15] MEDS: ASPIRIN 81 MG TABLET EC PO SCH (08:52)
[2018-12-15] MEDS: GABAPENTIN 400 MG CAPSULE PO SCH ×3 (08:53→20:34)
[2018-12-15] MEDS: CLOPIDOGREL 75 MG TABLET PO SCH (08:53)
[2018-12-15] MEDS: SENNA/DOCUSATE TABLET PO SCH (08:54)
[2018-12-15] MEDS: LIDODERM 5% PATCH TD SCH (10:42)
[2018-12-15] MEDS: CEFTRIAXONE PMX 2GM/50ML 50 ML IV SCH (10:43)
[2018-12-15] MEDS ORDERED: METHOCARBAMOL 750 MG TABLET PO PRN (11:00)
[2018-12-15 12:00] VITALS: BP 108/73
[2018-12-15] MEDS: ENOXAPARIN 40 MG/0.4 ML SQ SCH (14:26)
[2018-12-15 19:07] VITALS: BP 104/74
[2018-12-15] MEDS: ATORVASTATIN 40 MG TABLET PO SCH (20:35)
[2018-12-16 00:25] VITALS: BP 119/78
[2018-12-16] MEDS: CARVEDILOL 6.25 MG TABLET PO SCH ×2 (05:08→17:12)
[2018-12-16] MEDS: OxyconTIN ER 10 MG TAB.ER PO SCH ×3 (06:30→21:59)
[2018-12-16] MEDS: OXYcodone IR 5MG TABLET PO PRN ×3 (06:31→21:59)
[2018-12-16 07:26] VITALS: BP 117/83
[2018-12-16] MEDS: ALPRazolam 1MG TABLET PO PRN ×2 (08:36→17:06)
[2018-12-16] MEDS: GABAPENTIN 400 MG CAPSULE PO SCH ×3 (08:36→21:59)
[2018-12-16] MEDS: SENNA/DOCUSATE TABLET PO SCH (08:37)
[2018-12-16] MEDS: CLOPIDOGREL 75 MG TABLET PO SCH (08:37)
[2018-12-16] MEDS: SPIRONOLACTONE 25 MG TABLET PO SCH (08:37)
[2018-12-16] MEDS: FAMOTIDINE 20 MG TABLET PO SCH ×2 (08:37→21:59)
[2018-12-16] MEDS: LISINOPRIL 10 MG TABLET PO SCH (08:37)
[2018-12-16] MEDS: ASPIRIN 81 MG TABLET EC PO SCH (08:37)
[2018-12-16] MEDS: CEFTRIAXONE PMX 2GM/50ML 50 ML IV SCH (10:45)
[2018-12-16 12:35] VITALS: BP 112/60
[2018-12-16] MEDS: ENOXAPARIN 40 MG/0.4 ML SQ SCH (13:48)
[2018-12-16 17:08] VITALS: BP 121/66
[2018-12-16 20:18] VITALS: BP 125/65
[2018-12-16] MEDS: ATORVASTATIN 40 MG TABLET PO SCH (21:59)
[2018-12-17 01:52] VITALS: BP 118/81
[2018-12-17] MEDS: LIDODERM 5% PATCH TD SCH (04:38)
[2018-12-17] MEDS: OxyconTIN ER 10 MG TAB.ER PO SCH ×2 (06:37→14:30)
[2018-12-17] MEDS: CARVEDILOL 6.25 MG TABLET PO SCH (06:37)
[2018-12-17] MEDS: OXYcodone IR 5MG TABLET PO PRN ×2 (06:37→14:31)
[2018-12-17 07:29] VITALS: BP 110/73
[2018-12-17] MEDS: GABAPENTIN 400 MG CAPSULE PO SCH (08:40)
[2018-12-17] MEDS: SPIRONOLACTONE 25 MG TABLET PO SCH (08:41)
[2018-12-17] MEDS: FAMOTIDINE 20 MG TABLET PO SCH (08:41)
[2018-12-17] MEDS: CLOPIDOGREL 75 MG TABLET PO SCH (08:41)
[2018-12-17] MEDS: SENNA/DOCUSATE TABLET PO SCH (08:41)
[2018-12-17] MEDS: ASPIRIN 81 MG TABLET EC PO SCH (08:41)
[2018-12-17] MEDS: LISINOPRIL 10 MG TABLET PO SCH (10:15)
[2018-12-17] MEDS: CEFTRIAXONE PMX 2GM/50ML 50 ML IV SCH (10:15)
--- NOTE | 2018-12-17 11:00 | NUR ---
Nursing Activity Sheet posted on wall with the following instruction: 1. up in chair for all meals. 2. Use the bedside commode when nursing is avail to assist. 3. Seated Bilateral Lower Extremity exercises x 10-15 reps: marching, knee extension, pillow adductor squeezes, ankle dorsiflexion/plantar flexion. Reviewed the above with patient. Will review the activity sheet with nursing. Addendum: 12/17/18 at 1218 by GREG COLBERT PTA Amended: Links added.
[2018-12-17] MEDS ORDERED: METH4TAB2 PO (11:29)
[2018-12-17] MEDS: ENOXAPARIN 40 MG/0.4 ML SQ SCH (14:31)
[2018-12-17 16:26] VITALS: BP 142/72
== END 2018-12-17 17:30 | disposition home health service (06) | DRG 552 ==
LOC: ED 11:57 → EDIP 13:53 → 5SO 16:14 → 4NOR 12-16 00:24
PROVIDERS: ADMIT Hospitalist; ATTEND Family Medicine
DX: M54.9 Dorsalgia, unspecified (principal); E44.0 Moderate protein-calorie malnutrition; F11.20 Opioid dependence, uncomplicated; N39.0 Urinary tract infection, site not specified; D64.9 Anemia, unspecified; E11.9 Type 2 diabetes mellitus without complications; E66.01 Morbid (severe) obesity due to excess calories; E78.5 Hyperlipidemia, unspecified; F17.200 Nicotine dependence, unspecified, uncomplicated; F41.1 Generalized anxiety disorder; G62.9 Polyneuropathy, unspecified; G89.4 Chronic pain syndrome; I10 Essential (primary) hypertension; I25.10 Atherosclerotic heart disease of native coronary artery without angina pectoris; I25.2 Old myocardial infarction; I25.5 Ischemic cardiomyopathy; K21.9 Gastro-esophageal reflux disease without esophagitis; M79.7 Fibromyalgia; W18.39XA Other fall on same level, initial encounter; Y93.89 Activity, other specified; Y92.89 Other specified places as the place of occurrence of the external cause; Y99.8 Other external cause status; Z83.3 Family history of diabetes mellitus; Z83.6 Family history of other diseases of the respiratory system; Z68.39 Body mass index [BMI] 39.0-39.9, adult; Z79.02 Long term (current) use of antithrombotics/antiplatelets; Z91.19 Patient's noncompliance with other medical treatment and regimen; Z95.1 Presence of aortocoronary bypass graft; Z95.5 Presence of coronary angioplasty implant and graft; Z79.82 Long term (current) use of aspirin; Z79.899 Other long term (current) drug therapy; Z88.8 Allergy status to other drugs, medicaments and biological substances
CPT/HCPCS: 36415; 70450; 71045; 72125; 72131; 72158; 80048; 80053; 80329; 81001; 82040; 82306; 83735; 84100; 84439; 84443; 84484; 85025; 87077; 87086; 87186; 93005; 93306; 93970; 96374; 99285; A9585; G0378; J0696; J1170; J1650; J1885; Q0162; G0480; J2060; J2930; J3030; J3475; J7030; J7050; J7512

== ENCOUNTER 2019-04-04 14:27 | Inpatient (IN) | payer MEDICAID ==
[~2019-04-04] VITALS: Ht 167.6 cm; Wt 117.1 kg
[~2019-04-04 14:27] MED LIST changes: +ATOR40TA78 PO; +CLOP75TA52 PO; +EMPA10TA PO; +METH4TAB2 PO; +OXYC5TAB3 PO; +ROSU40TA PO; +SPIR25TA PO
--- NOTE | 2019-04-04 14:43 | NUR ---
PT. ARRIVES BY [facility] WITH C/O RIGHT LEG WEAKNESS, INCREASING FALLS, INCREASING RIGHT LEG WEAKNESS OVER THE LAST MONTH AND VISUAL DISTURBANCES. PT. HAS THE CP MONITOR IN PLACE. PT.'S HOB IS ELEVATED GREATER THAN 30 DEGREES. SIDERAILS ARE UP X 2 WITH THE CALL LIGHT IN PLACE. PT.'S LUNGS ARE CTA. MM ARE PINK AND MOIST WITH PULSES +2 THROUGHOUT. PUPILS ARE MARIAH. PT.'S RIGHT LEG IS WEAKER THAN THE LEFT. HAND GRASPS ARE EQUAL AND STRONG. PT. HAS NO TEETH PRESENT IN HER UPPER MOUTH.
[2019-04-04] MEDS ORDERED: HYDROcodone/APAP 5/325 TABLET PO ONE (15:00)
--- NOTE | 2019-04-04 15:20 | NUR ---
PT. WAS ASSISTED WITH THE BEDPAN AND REPOSITIONED FOR COMFORT. PT. REMAINS MONITORED. SR ARE UP X 2 WITH THE CALL LIGHT IN REACH.
[2019-04-04] MEDS ORDERED: HYDROcodone/APAP 5/325 TABLET ONE (15:27)
[2019-04-04] MEDS ORDERED: MORPHINE SULFATE 4 MG/ML, 1ML IV ONE (17:00)
[2019-04-04] MEDS ORDERED: MORPHINE SULFATE 4 MG/ML, 1ML ONE (17:42)
--- NOTE | 2019-04-04 17:46 | NUR ---
PT. HAS THE MONITOR IN PLACE. PT. WAS MEDICATED FOR PAIN. SR REMAIN UP X 2 WITH THE CALL LIGHT IN PLACE. VSS.
[2019-04-04 17:51] LABS: MICROSCOPIC NOT IND
[2019-04-04 17:57] LABS: CULTURE INDICATED? NO
[2019-04-04 18:24] LABS: BASOPHILS # (AUTO) 0.07 x10^3/uL (0-0.1); BASOPHILS % (AUTO) 1 % (0-1); EOSINOPHILS # (AUTO) 0.15 x10^3/uL (0-0.4); EOSINOPHILS % (AUTO) 2 % (1-7); LYMPHOCYTES # (AUTO) 1.65 x10^3/uL (1-3.4); LYMPHOCYTES % (AUTO) 24 % (22-44); MD NO; MEAN CORPUSCULAR HEMOGLOBIN 28.3 pg (27.0-34.8); MEAN CORPUSCULAR HGB CONC 31.9 g/dL (32.4-35.8); MEAN CORPUSCULAR VOLUME 88.6 fL (80-100); MEAN PLATELET VOLUME 8.6 fL (7.4-10.4); MONOCYTES % (AUTO) 6 % (2-9); NEUTROPHILS # (AUTO) 4.69 x10^3/uL (1.8-6.8); NEUTROPHILS % (AUTO) 67 % (42-75); PLATELET COUNT 294 x10^3/uL (130-400); RED BLOOD COUNT 4.86 x10^6/uL (3.82-5.3); RED CELL DISTRIBUTION WIDTH 16.2 % (9.6-15.2)
[2019-04-04 18:31] LABS: ALBUMIN 3.6 g/dL (3.4-5.0); ANION GAP 6 mmol/L (5-15); CALCIUM 9.2 mg/dL (8.5-10.1); CHLORIDE 110 mmol/L (98-107)
[2019-04-04 18:34] LABS: ALANINE AMINOTRANSFERASE 14 U/L (12-78); ALKALINE PHOSPHATASE 168 U/L (45-117); BILIRUBIN,TOTAL 0.1 mg/dL (0.2-1.0); CREATININE 0.82 mg/dL (0.55-1.02); TROPONIN I < 0.015 ng/mL (0.000-0.045)
--- NOTE | 2019-04-04 19:17 | NUR ---
REPORT WAS GIVEN TO ESTHER LOPEZ.
--- NOTE | 2019-04-04 19:22 | NUR ---
REPORT GIVEN TO MONTANA LOPEZ. ALL QUESTIONS ANSWERED. PT GOING TO ROOM 370
[2019-04-04 19:48] LABS: AMPHETAMINE SCREEN, URINE Negative (Negative); BARBITURATE SCREEN, URINE Negative (Negative); BENZODIAZEPINE SCREEN, URINE Negative (Negative); CANNABINOID SCREEN, URINE Negative (Negative); COCAINE SCREEN, URINE Negative (Negative); METHADONE SCREEN, URINE Negative (Negative); OPIATE SCREEN, URINE Negative (Negative)
[2019-04-04 19:50] VITALS: BP 122/85
[2019-04-04] MEDS: INSULIN LISPRO 100 UNITS/ML, PEN SQ-INSULIN SCH (21:00)
[2019-04-04] MEDS: ATORVASTATIN 80 MG TABLET PO SCH (22:29)
[2019-04-04] MEDS: OXYcodone/APAP 5/325MG TABLET PO PRN (22:29)
[2019-04-05] MEDS: ALPRazolam 1MG TAB PO PRN ×3 (00:52→15:14)
[2019-04-05 01:27] VITALS: BP 112/75
[2019-04-05] MEDS: OXYcodone/APAP 5/325MG TABLET PO PRN ×5 (02:47→21:37)
[2019-04-05 06:00] LABS: BASOPHILS # (AUTO) 0.07 x10^3/uL (0-0.1); BASOPHILS % (AUTO) 1 % (0-1); EOSINOPHILS # (AUTO) 0.15 x10^3/uL (0-0.4); EOSINOPHILS % (AUTO) 2 % (1-7); LYMPHOCYTES # (AUTO) 1.69 x10^3/uL (1-3.4); LYMPHOCYTES % (AUTO) 27 % (22-44); MD NO; MEAN CORPUSCULAR HEMOGLOBIN 28.6 pg (27.0-34.8); MEAN CORPUSCULAR HGB CONC 32.5 g/dL (32.4-35.8); MEAN CORPUSCULAR VOLUME 87.8 fL (80-100); MEAN PLATELET VOLUME 8.6 fL (7.4-10.4); MONOCYTES # (AUTO) 0.37 x10^3/uL (0.2-0.8); MONOCYTES % (AUTO) 6 % (2-9); NEUTROPHILS % (AUTO) 63 % (42-75); PLATELET COUNT 299 x10^3/uL (130-400); RED BLOOD COUNT 4.37 x10^6/uL (3.82-5.3); RED CELL DISTRIBUTION WIDTH 16.3 % (9.6-15.2)
[2019-04-05 06:11] LABS: ANION GAP 5 mmol/L (5-15); CALCIUM 8.8 mg/dL (8.5-10.1); CHLORIDE 107 mmol/L (98-107); CREATININE 0.78 mg/dL (0.55-1.02)
[2019-04-05] MEDS: INSULIN LISPRO 100 UNITS/ML, PEN SQ-INSULIN SCH ×4 (07:00→21:35)
[2019-04-05 08:50] VITALS: BP 101/69
[2019-04-05] MEDS: SPIRONOLACTONE 25 MG TABLET PO SCH (08:56)
[2019-04-05] MEDS: LISINOPRIL 20 MG TABLET PO SCH (08:56)
[2019-04-05] MEDS: METHOCARBAMOL 750 MG TABLET PO SCH ×3 (08:56→21:36)
[2019-04-05] MEDS: ASPIRIN 81 MG TABLET EC PO SCH (08:56)
[2019-04-05] MEDS: GABAPENTIN 400 MG CAPSULE PO SCH ×3 (08:57→21:36)
[2019-04-05] MEDS: CARVEDILOL 25 MG TABLET PO SCH ×2 (08:57→21:34)
[2019-04-05] MEDS: CLOPIDOGREL 75 MG TABLET PO SCH (08:59)
[2019-04-05] MEDS ORDERED: FAMOTIDINE 40 MG TABLET PO SCH (09:00)
[2019-04-05] MEDS: TEMPLATE NON-FORMULARY MED. (Empagliflozin (Jardiance) 10 MG) HOMEMEDPO SCH (09:00)
[2019-04-05] MEDS ORDERED: morphine SULFATE 10 MG/ML, 1ML IVPush PRN (12:30)
[2019-04-05] MEDS: methylPREDNISolone SOD SUCC 125 MG/2 ML IVPush SCH ×2 (12:59→18:36)
[2019-04-05 13:20] VITALS: BP 97/67
[2019-04-05] MEDS: KETOROLAC 30 MG/1 ML IVPush SCH (17:27)
[2019-04-05] MEDS ORDERED: NORT25CA78 PO (17:55)
[2019-04-05] MEDS ORDERED: ISOS60TA36 PO (17:57)
[2019-04-05 20:08] VITALS: BP 126/80
[2019-04-05] MEDS: FAMOTIDINE 20 MG TABLET PO SCH (21:36)
[2019-04-05] MEDS: ATORVASTATIN 80 MG TABLET PO SCH (21:36)
[2019-04-06 00:49] VITALS: BP 114/75
[2019-04-06] MEDS: methylPREDNISolone SOD SUCC 125 MG/2 ML IVPush SCH ×4 (00:53→18:23)
[2019-04-06] MEDS: ALPRazolam 1MG TAB PO PRN ×3 (00:53→22:02)
[2019-04-06] MEDS: KETOROLAC 30 MG/1 ML IVPush SCH ×4 (00:53→18:23)
[2019-04-06] MEDS: OXYcodone/APAP 5/325MG TABLET PO PRN ×5 (01:51→22:04)
[2019-04-06 07:30] VITALS: BP 123/89
[2019-04-06] MEDS: TEMPLATE NON-FORMULARY MED. (Empagliflozin (Jardiance) 10 MG) HOMEMEDPO SCH (08:17)
[2019-04-06] MEDS: ASPIRIN 81 MG TABLET EC PO SCH (08:23)
[2019-04-06] MEDS: LISINOPRIL 20 MG TABLET PO SCH (08:23)
[2019-04-06] MEDS: GABAPENTIN 400 MG CAPSULE PO SCH (08:24)
[2019-04-06] MEDS: FAMOTIDINE 20 MG TABLET PO SCH ×2 (08:24→22:02)
[2019-04-06] MEDS: SPIRONOLACTONE 25 MG TABLET PO SCH (08:24)
[2019-04-06] MEDS: CARVEDILOL 25 MG TABLET PO SCH ×2 (08:24→22:02)
[2019-04-06] MEDS: CLOPIDOGREL 75 MG TABLET PO SCH (08:24)
[2019-04-06] MEDS: METHOCARBAMOL 750 MG TABLET PO SCH ×3 (08:24→22:01)
[2019-04-06] MEDS: INSULIN LISPRO 100 UNITS/ML, PEN SQ-INSULIN SCH ×4 (08:25→22:01)
[2019-04-06] MEDS: PREGABALIN 75 MG CAPSULE PO SCH ×2 (10:00→22:02)
[2019-04-06 12:20] VITALS: BP 127/82
[2019-04-06] MEDS ORDERED: morphine SULFATE 10 MG/ML, 1ML IVPush PRN (12:30)
[2019-04-06 19:00] VITALS: BP 134/85
[2019-04-06] MEDS: ATORVASTATIN 80 MG TABLET PO SCH (22:02)
[2019-04-07 00:24] VITALS: BP 128/78
[2019-04-07] MEDS: KETOROLAC 30 MG/1 ML IVPush SCH ×4 (01:38→18:25)
[2019-04-07] MEDS: methylPREDNISolone SOD SUCC 125 MG/2 ML IVPush SCH ×2 (01:39→06:24)
[2019-04-07] MEDS: OXYcodone/APAP 5/325MG TABLET PO PRN ×5 (02:42→22:10)
[2019-04-07 08:30] VITALS: BP 140/83
[2019-04-07] MEDS: INSULIN LISPRO 100 UNITS/ML, PEN SQ-INSULIN SCH ×4 (08:48→22:12)
[2019-04-07] MEDS: LISINOPRIL 20 MG TABLET PO SCH (08:48)
[2019-04-07] MEDS: ALPRazolam 1MG TAB PO PRN ×2 (08:48→18:25)
[2019-04-07] MEDS: CLOPIDOGREL 75 MG TABLET PO SCH (08:48)
[2019-04-07] MEDS: ASPIRIN 81 MG TABLET EC PO SCH (08:48)
[2019-04-07] MEDS: SPIRONOLACTONE 25 MG TABLET PO SCH (08:48)
[2019-04-07] MEDS: PREGABALIN 75 MG CAPSULE PO SCH ×2 (08:48→22:11)
[2019-04-07] MEDS: CARVEDILOL 25 MG TABLET PO SCH ×2 (08:48→22:11)
[2019-04-07] MEDS: FAMOTIDINE 20 MG TABLET PO SCH ×2 (08:48→22:11)
[2019-04-07] MEDS: TEMPLATE NON-FORMULARY MED. (Empagliflozin (Jardiance) 10 MG) HOMEMEDPO SCH (08:53)
[2019-04-07] MEDS: METHOCARBAMOL 750 MG TABLET PO SCH ×3 (08:53→22:11)
[2019-04-07 13:44] VITALS: BP 156/90
--- NOTE | 2019-04-07 15:48 | NUR ---
Initiated green activity sheet: 1) up to chair for meals and grooming 2) walk with nurses 1-3 times a day with walker posted it in pt's room and notified pt and RN who agreed to plan Addendum: 04/07/19 at 1549 by Ijeoma Cox PT Amended: Links added.
[2019-04-07 19:01] VITALS: BP 121/63
[2019-04-07] MEDS: ATORVASTATIN 80 MG TABLET PO SCH (22:11)
[2019-04-08] MEDS: KETOROLAC 30 MG/1 ML IVPush SCH ×5 (00:25→23:28)
[2019-04-08 02:07] VITALS: BP 114/73
[2019-04-08] MEDS: ALPRazolam 1MG TAB PO PRN ×2 (02:09→17:23)
[2019-04-08] MEDS: OXYcodone/APAP 5/325MG TABLET PO PRN ×5 (02:09→20:16)
[2019-04-08] MEDS: INSULIN LISPRO 100 UNITS/ML, PEN SQ-INSULIN SCH ×4 (07:00→20:07)
[2019-04-08 07:11] VITALS: BP 121/71
[2019-04-08] MEDS: TEMPLATE NON-FORMULARY MED. (Empagliflozin (Jardiance) 10 MG) HOMEMEDPO SCH (07:59)
[2019-04-08] MEDS: ASPIRIN 81 MG TABLET EC PO SCH (08:26)
[2019-04-08] MEDS: METHOCARBAMOL 750 MG TABLET PO SCH ×3 (08:26→23:28)
[2019-04-08] MEDS: CARVEDILOL 25 MG TABLET PO SCH ×2 (08:26→20:15)
[2019-04-08] MEDS: CLOPIDOGREL 75 MG TABLET PO SCH (08:26)
[2019-04-08] MEDS: FAMOTIDINE 20 MG TABLET PO SCH ×2 (08:26→20:16)
[2019-04-08] MEDS: SPIRONOLACTONE 25 MG TABLET PO SCH (08:26)
[2019-04-08] MEDS: LISINOPRIL 20 MG TABLET PO SCH (08:26)
[2019-04-08] MEDS: PREGABALIN 75 MG CAPSULE PO SCH ×2 (08:27→20:16)
[2019-04-08] MEDS: LIDODERM 5% PATCH TD PRN ×2 (11:49→14:48)
[2019-04-08 15:17] VITALS: BP 125/75
[2019-04-08 19:36] VITALS: BP 127/74
[2019-04-08] MEDS ORDERED: CARVEDILOL 6.25 MG TABLET ONE (20:13)
[2019-04-08] MEDS: ATORVASTATIN 80 MG TABLET PO SCH (20:16)
[2019-04-09] MEDS: OXYcodone/APAP 5/325MG TABLET PO PRN ×4 (00:36→17:00)
[2019-04-09] MEDS: ALPRazolam 1MG TAB PO PRN ×3 (02:11→20:31)
[2019-04-09 02:39] VITALS: BP 145/85
[2019-04-09] MEDS: KETOROLAC 30 MG/1 ML IVPush SCH ×3 (06:04→18:32)
[2019-04-09] MEDS: INSULIN LISPRO 100 UNITS/ML, PEN SQ-INSULIN SCH ×4 (07:00→21:30)
[2019-04-09] MEDS: SPIRONOLACTONE 25 MG TABLET PO SCH (08:46)
[2019-04-09] MEDS: CARVEDILOL 25 MG TABLET PO SCH (08:48)
[2019-04-09] MEDS: ASPIRIN 81 MG TABLET EC PO SCH (08:48)
[2019-04-09] MEDS: FAMOTIDINE 20 MG TABLET PO SCH ×2 (08:48→20:31)
[2019-04-09] MEDS: PREGABALIN 75 MG CAPSULE PO SCH ×2 (08:48→20:31)
[2019-04-09] MEDS: LISINOPRIL 20 MG TABLET PO SCH (08:49)
[2019-04-09] MEDS: CLOPIDOGREL 75 MG TABLET PO SCH (08:49)
[2019-04-09] MEDS: METHOCARBAMOL 750 MG TABLET PO SCH ×3 (08:50→20:31)
[2019-04-09] MEDS: TEMPLATE NON-FORMULARY MED. (Empagliflozin (Jardiance) 10 MG) HOMEMEDPO SCH (08:51)
[2019-04-09 09:20] VITALS: BP 131/81
[2019-04-09] MEDS: ENOXAPARIN 40 MG/0.4 ML SQ SCH (13:05)
[2019-04-09 13:31] VITALS: BP 134/83
[2019-04-09] MEDS: LIDODERM 5% PATCH TD PRN (14:41)
[2019-04-09 19:35] VITALS: BP 108/72
[2019-04-09] MEDS: ATORVASTATIN 80 MG TABLET PO SCH (20:31)
[2019-04-09] MEDS: CARVEDILOL 6.25 MG TABLET PO SCH (21:29)
[2019-04-10] MEDS: OXYcodone/APAP 5/325MG TABLET PO PRN ×5 (00:16→21:25)
[2019-04-10] MEDS: KETOROLAC 30 MG/1 ML IVPush SCH ×3 (00:17→11:38)
[2019-04-10 02:32] VITALS: BP 116/77
[2019-04-10] MEDS: INSULIN LISPRO 100 UNITS/ML, PEN SQ-INSULIN SCH ×4 (07:00→20:18)
[2019-04-10 08:06] VITALS: BP 106/74
[2019-04-10] MEDS: ASPIRIN 81 MG TABLET EC PO SCH (08:07)
[2019-04-10] MEDS: FAMOTIDINE 20 MG TABLET PO SCH ×2 (08:07→21:19)
[2019-04-10] MEDS: PREGABALIN 75 MG CAPSULE PO SCH ×2 (08:08→21:19)
[2019-04-10] MEDS: METHOCARBAMOL 750 MG TABLET PO SCH ×3 (08:08→21:18)
[2019-04-10] MEDS: CLOPIDOGREL 75 MG TABLET PO SCH (08:08)
[2019-04-10] MEDS: CARVEDILOL 6.25 MG TABLET PO SCH ×2 (08:10→21:18)
[2019-04-10] MEDS: SPIRONOLACTONE 25 MG TABLET PO SCH (08:11)
[2019-04-10] MEDS: TEMPLATE NON-FORMULARY MED. (Empagliflozin (Jardiance) 10 MG) HOMEMEDPO SCH (08:11)
[2019-04-10] MEDS: LISINOPRIL 20 MG TABLET PO SCH (08:11)
[2019-04-10] MEDS: ALPRazolam 1MG TAB PO PRN ×2 (11:53→16:58)
[2019-04-10 14:04] VITALS: BP 136/83
[2019-04-10] MEDS: ENOXAPARIN 40 MG/0.4 ML SQ SCH (14:17)
[2019-04-10] MEDS: LIDODERM 5% PATCH TD PRN (16:07)
[2019-04-10 19:00] VITALS: BP 133/87
[2019-04-10] MEDS: ATORVASTATIN 80 MG TABLET PO SCH (21:18)
[2019-04-11 01:50] VITALS: BP 125/81
[2019-04-11] MEDS: OXYcodone/APAP 5/325MG TABLET PO PRN ×5 (02:03→20:47)
[2019-04-11 06:22] LABS: BASOPHILS # (AUTO) 0.02 x10^3/uL (0-0.1); BASOPHILS % (AUTO) 0 % (0-1); CHLORIDE 106 mmol/L (98-107); EOSINOPHILS % (AUTO) 1 % (1-7); LYMPHOCYTES # (AUTO) 2.38 x10^3/uL (1-3.4); LYMPHOCYTES % (AUTO) 21 % (22-44); MD NO; MEAN CORPUSCULAR HEMOGLOBIN 28.4 pg (27.0-34.8); MEAN CORPUSCULAR HGB CONC 31.9 g/dL (32.4-35.8); MEAN CORPUSCULAR VOLUME 89.1 fL (80-100); MEAN PLATELET VOLUME 9.3 fL (7.4-10.4); MONOCYTES # (AUTO) 0.84 x10^3/uL (0.2-0.8); MONOCYTES % (AUTO) 7 % (2-9); NEUTROPHILS # (AUTO) 8.27 x10^3/uL (1.8-6.8); NEUTROPHILS % (AUTO) 71 % (42-75); PLATELET COUNT 263 x10^3/uL (130-400); RED BLOOD COUNT 4.44 x10^6/uL (3.82-5.3); RED CELL DISTRIBUTION WIDTH 16.2 % (9.6-15.2)
[2019-04-11 06:32] LABS: ALANINE AMINOTRANSFERASE 20 U/L (12-78); ALBUMIN 2.7 g/dL (3.4-5.0); ALKALINE PHOSPHATASE 108 U/L (45-117); ANION GAP 8 mmol/L (5-15); BILIRUBIN,TOTAL 0.2 mg/dL (0.2-1.0); CALCIUM 8.2 mg/dL (8.5-10.1); CREATININE 0.66 mg/dL (0.55-1.02); TOTAL PROTEIN 6.2 g/dL (6.4-8.2)
[2019-04-11] MEDS: INSULIN LISPRO 100 UNITS/ML, PEN SQ-INSULIN SCH ×4 (07:00→20:22)
[2019-04-11 07:01] VITALS: BP 124/77
[2019-04-11] MEDS: ALPRazolam 1MG TAB PO PRN ×3 (08:10→20:48)
[2019-04-11] MEDS: SPIRONOLACTONE 25 MG TABLET PO SCH (08:10)
[2019-04-11] MEDS: CARVEDILOL 6.25 MG TABLET PO SCH ×2 (08:10→21:46)
[2019-04-11] MEDS: PREGABALIN 75 MG CAPSULE PO SCH ×2 (08:11→20:47)
[2019-04-11] MEDS: ASPIRIN 81 MG TABLET EC PO SCH (08:11)
[2019-04-11] MEDS: TEMPLATE NON-FORMULARY MED. (Empagliflozin (Jardiance) 10 MG) HOMEMEDPO SCH (08:11)
[2019-04-11] MEDS: LISINOPRIL 20 MG TABLET PO SCH (08:11)
[2019-04-11] MEDS: METHOCARBAMOL 750 MG TABLET PO SCH ×3 (08:11→20:47)
[2019-04-11] MEDS: CLOPIDOGREL 75 MG TABLET PO SCH (08:11)
[2019-04-11] MEDS: FAMOTIDINE 20 MG TABLET PO SCH ×2 (08:11→20:48)
[2019-04-11] MEDS: ENOXAPARIN 40 MG/0.4 ML SQ SCH (13:00)
[2019-04-11 15:48] VITALS: BP 132/85
[2019-04-11 18:47] VITALS: BP 125/79
[2019-04-11] MEDS: ATORVASTATIN 80 MG TABLET PO SCH (20:47)
[2019-04-12 00:11] VITALS: BP 110/79
[2019-04-12] MEDS: OXYcodone/APAP 5/325MG TABLET PO PRN ×3 (00:52→10:00)
[2019-04-12] MEDS: INSULIN LISPRO 100 UNITS/ML, PEN SQ-INSULIN SCH ×2 (07:00→11:00)
[2019-04-12 08:00] VITALS: BP 130/88
[2019-04-12] MEDS: ASPIRIN 81 MG TABLET EC PO SCH (08:21)
[2019-04-12] MEDS: METHOCARBAMOL 750 MG TABLET PO SCH (08:21)
[2019-04-12] MEDS: CARVEDILOL 6.25 MG TABLET PO SCH (08:21)
[2019-04-12] MEDS: FAMOTIDINE 20 MG TABLET PO SCH (08:21)
[2019-04-12] MEDS: CLOPIDOGREL 75 MG TABLET PO SCH (08:21)
[2019-04-12] MEDS: LISINOPRIL 20 MG TABLET PO SCH (08:21)
[2019-04-12] MEDS: ALPRazolam 1MG TAB PO PRN (08:21)
[2019-04-12] MEDS: PREGABALIN 75 MG CAPSULE PO SCH (08:21)
[2019-04-12] MEDS: SPIRONOLACTONE 25 MG TABLET PO SCH (08:21)
[2019-04-12] MEDS: TEMPLATE NON-FORMULARY MED. (Empagliflozin (Jardiance) 10 MG) HOMEMEDPO SCH (08:22)
== END 2019-04-12 13:27 | disposition home health service (06) | DRG 552 ==
LOC: ED 15:02 → EDIP 18:48 → 3NE 19:30
PROVIDERS: ADMIT Internal Medicine; ATTEND Internal Medicine
PROC: 0T9B70Z Drainage of Bladder with Drainage Device, Via Natural or Artificial Opening (ICD-10-PCS; principal; 2019-04-04)
DX: M48.061 Spinal stenosis, lumbar region without neurogenic claudication (principal); E44.0 Moderate protein-calorie malnutrition; Z68.41 Body mass index [BMI] 40.0-44.9, adult; I50.32 Chronic diastolic (congestive) heart failure; M79.7 Fibromyalgia; E66.01 Morbid (severe) obesity due to excess calories; M54.2 Cervicalgia; D64.9 Anemia, unspecified; E11.42 Type 2 diabetes mellitus with diabetic polyneuropathy; E78.5 Hyperlipidemia, unspecified; F15.90 Other stimulant use, unspecified, uncomplicated; F17.210 Nicotine dependence, cigarettes, uncomplicated; F41.9 Anxiety disorder, unspecified; G89.4 Chronic pain syndrome; I11.0 Hypertensive heart disease with heart failure; I25.10 Atherosclerotic heart disease of native coronary artery without angina pectoris; I25.5 Ischemic cardiomyopathy; M21.371 Foot drop, right foot; M51.36 Other intervertebral disc degeneration, lumbar region; M51.26 Other intervertebral disc displacement, lumbar region; R29.6 Repeated falls; W01.0XXA Fall on same level from slipping, tripping and stumbling without subsequent striking against object, initial encounter; Y93.01 Activity, walking, marching and hiking; Z79.02 Long term (current) use of antithrombotics/antiplatelets; Z79.82 Long term (current) use of aspirin; Z79.84 Long term (current) use of oral hypoglycemic drugs; Z79.899 Other long term (current) drug therapy; Z82.5 Family history of asthma and other chronic lower respiratory diseases; Z83.3 Family history of diabetes mellitus; Z95.1 Presence of aortocoronary bypass graft; Z95.5 Presence of coronary angioplasty implant and graft; Y92.89 Other specified places as the place of occurrence of the external cause; Y99.8 Other external cause status; I25.2 Old myocardial infarction
CPT/HCPCS: 36415; 70450; 71045; 72125; 72131; 72158; 80048; 80053; 80307; 81003; 82962; 84484; 85025; 93005; G0378; J1650; J1885; J1815; J2270; J2930; J7512

== ENCOUNTER 2019-05-26 15:29 | Emergency (ER) | payer MEDICAID ==
[~2019-05-26] VITALS: Ht 167.6 cm; Wt 105.0 kg
[~2019-05-26 15:29] MED LIST changes: +ISOS60TA36 PO; +NORT25CA78 PO
[2019-05-26] MEDS ORDERED: KETOROLAC 30 MG/1 ML IM ONE (16:00)
[2019-05-26] MEDS ORDERED: OXYcodone/APAP 10/325MG TABLET PO ONE (16:00)
[2019-05-26] MEDS ORDERED: KETOROLAC 60 MG/2 ML ONE (16:31)
[2019-05-26] MEDS ORDERED: OXYcodone/APAP 10/325MG TABLET ONE (16:32)
--- NOTE | 2019-05-26 16:45 | NUR ---
Pain medication adminstered per order; patien verbalizes understanding and fall risk; patient nodding off but is easily arousable; vss; all needs met at this time
--- NOTE | 2019-05-26 17:57 | NUR ---
IV ESTABLISHED. PT TOLERATED WELL. VSS.
[2019-05-26] MEDS ORDERED: KETAMINE 10 MG/ML, 20ML ONE (17:59)
[2019-05-26] MEDS ORDERED: KETAMINE 10 MG/ML, 20ML IV ONE (18:00)
--- NOTE | 2019-05-26 18:12 | NUR ---
ketamine ordered; educated patient on side effects; adminstered per MD order; vital signs obtained prior to administration VSS; medication adminstered slowly without event; patient reports feeling lightheaded after and feels immediate improvement in pain level; noticebly increased conversing from patient; vital signs set to monitor Q15. Q15 post check VSS.
[2019-05-26 18:16] VITALS: BP 123/75
--- NOTE | 2019-05-26 18:41 | NUR ---
pt states continued pain relief. pt agreeable to dc. per pt, she only wears o2 when she "really needs it." pt states she does not want o2 during transportation home. vss at this time. pt ready for dc.
== END 2019-05-26 18:59 | disposition home or self-care (01) ==
LOC: ED 17:20
DX: M54.41 Lumbago with sciatica, right side (principal); I10 Essential (primary) hypertension; E11.9 Type 2 diabetes mellitus without complications; I25.2 Old myocardial infarction; K21.9 Gastro-esophageal reflux disease without esophagitis; Z88.8 Allergy status to other drugs, medicaments and biological substances
CPT/HCPCS: 96372; 96374; 99283; J1885

== ENCOUNTER 2019-05-31 21:52 | Emergency (ER) | payer MEDICAID ==
[~2019-05-31] VITALS: Ht 167.6 cm; Wt 107.0 kg
--- NOTE | 2019-05-31 22:03 | NUR ---
ALE. REPORT RECEIVED FROM EMS. PT HAD GLF 3 DAYS AGO AND DC FROM [facility]. PT C/O BILATERAL LOWER BACK/HIP/LEGS PAIN X 2 DAYS. PT'S AOX4. RESPS EVEN AND UNLABORED. BP/SPO2 MONITORS IN PLACE. CALL LIGHT WITHIN REACH. EDMD AT BEDSIDE TO EVALUATE.
[2019-05-31] MEDS ORDERED: ACETAMINOPHEN 500 MG TABLET ONE (22:19)
--- NOTE | 2019-05-31 22:22 | NUR ---
PT MEDICATED PER EMAR. PT TOLERATED WELL.
[2019-05-31 22:30] LABS: BASOPHILS # (AUTO) 0.01 x10^3/uL (0-0.1); BASOPHILS % (AUTO) 0 % (0-1); EOSINOPHILS # (AUTO) 0.25 x10^3/uL (0-0.4); EOSINOPHILS % (AUTO) 3 % (1-7); LYMPHOCYTES # (AUTO) 1.16 x10^3/uL (1-3.4); LYMPHOCYTES % (AUTO) 16 % (22-44); MD NO; MEAN CORPUSCULAR HGB CONC 32.3 g/dL (32.4-35.8); MEAN CORPUSCULAR VOLUME 86.7 fL (80-100); MEAN PLATELET VOLUME 8.2 fL (7.4-10.4); MONOCYTES # (AUTO) 0.38 x10^3/uL (0.2-0.8); MONOCYTES % (AUTO) 5 % (2-9); NEUTROPHILS # (AUTO) 5.46 x10^3/uL (1.8-6.8); NEUTROPHILS % (AUTO) 75 % (42-75); PLATELET COUNT 283 x10^3/uL (130-400); RED BLOOD COUNT 4.13 x10^6/uL (3.82-5.3); RED CELL DISTRIBUTION WIDTH 16.9 % (9.6-15.2)
[2019-05-31] MEDS ORDERED: ACETAMINOPHEN 500 MG TABLET PO ONE (22:30)
[2019-05-31 22:38] LABS: ALBUMIN 3.1 g/dL (3.4-5.0); ANION GAP 6 mmol/L (5-15); CALCIUM 8.6 mg/dL (8.5-10.1); CHLORIDE 111 mmol/L (98-107); CREATININE 0.69 mg/dL (0.55-1.02)
[2019-05-31 22:41] LABS: CREATINE KINASE, TOTAL 144 U/L (26-192)
[2019-05-31 23:00] VITALS: BP 149/77
--- NOTE | 2019-05-31 23:45 | NUR ---
PT GIVEN DC INSTRUCTIONS. PT'S AOX4. RESPS EVEN AND UNLABORED. PT WHEELED TO DC. NO ACUTE DISTRESS AT DC.
== END 2019-05-31 23:46 | disposition home or self-care (01) ==
LOC: ED 22:25
DX: M25.561 Pain in right knee (principal); M79.661 Pain in right lower leg; M79.671 Pain in right foot; M25.571 Pain in right ankle and joints of right foot; I25.2 Old myocardial infarction; G89.29 Other chronic pain; M54.9 Dorsalgia, unspecified; K21.9 Gastro-esophageal reflux disease without esophagitis; E11.9 Type 2 diabetes mellitus without complications; I11.9 Hypertensive heart disease without heart failure; Z86.73 Personal history of transient ischemic attack (TIA), and cerebral infarction without residual deficits; F17.200 Nicotine dependence, unspecified, uncomplicated
CPT/HCPCS: 36415; 80048; 82040; 82550; 85025; 99284

== ENCOUNTER 2019-09-22 16:45 | Inpatient (IN) | payer MEDICAID ==
[~2019-09-22] VITALS: Ht 167.6 cm; Wt 118.8 kg
[~2019-09-22 16:45] MED LIST changes: -ALPR-475 PO; +ALPR0.5T7 PO; +CEFD300C37 PO; +CYCL-259 PO; +GABA800T5 PO; +HYDR-3237 PO; +HYDR-3245 PO; +LIDO35.46 TP; +LISI-420 PO
--- NOTE | 2019-09-22 16:52 | NUR ---
PT BIB FOR GEN PAIN AND INCREASED SWELLING IN HER LEGS. PT STATES SHE HAS FELT WEAK AND HAD DIFFICULT TO GET AROUND WITH HER WALKER. PT DENIES CP, SOB. SHE WAS RECENTLY HERE FOR A CARDIAC WORK UP, SHE HAD A NEGATIVE C
[2019-09-22] MEDS ORDERED: DIAZEPAM 5 MG TABLET PO ONE (17:00)
[2019-09-22] MEDS ORDERED: KETOROLAC 30 MG/1 ML IM ONE (17:00)
[2019-09-22] MEDS ORDERED: DIAZEPAM 5 MG TABLET ONE (17:11)
[2019-09-22] MEDS ORDERED: KETOROLAC 60 MG/2 ML ONE (17:11)
--- NOTE | 2019-09-22 17:17 | NUR ---
PT MEDICATED PER MAR
--- NOTE | 2019-09-22 17:51 | NUR ---
PT TO IMAGING
[2019-09-22] MEDS ORDERED: OXYcodone/APAP 5/325MG TABLET ONE (18:46)
[2019-09-22 18:57] LABS: BASOPHILS # (AUTO) 0.04 x10^3/uL (0-0.1); BASOPHILS % (AUTO) 1 % (0-1); EOSINOPHILS # (AUTO) 0.16 x10^3/uL (0-0.4); EOSINOPHILS % (AUTO) 3 % (1-7); LYMPHOCYTES % (AUTO) 22 % (22-44); MD NO; MEAN CORPUSCULAR HGB CONC 32.4 g/dL (32.4-35.8); MEAN CORPUSCULAR VOLUME 89.6 fL (80-100); MONOCYTES # (AUTO) 0.37 x10^3/uL (0.2-0.8); MONOCYTES % (AUTO) 6 % (2-9); NEUTROPHILS # (AUTO) 4.36 x10^3/uL (1.8-6.8); NEUTROPHILS % (AUTO) 69 % (42-75); PLATELET COUNT 271 x10^3/uL (130-400); RED CELL DISTRIBUTION WIDTH 16.4 % (9.6-15.2)
--- NOTE | 2019-09-22 18:58 | NUR ---
RECEIVED REPORT FROM JESSICA STOKES. PT RESTING ON GURNEY, RELAXED BODY, NO GRIMACING, EYES CLOSED, C/O 10/10 PAIN "THROUGHOUT MY WHOLE BODY". VSS. PT CONNECTED TO MONITORING, ALL SAFETY MEASURES IN PLACE, CALL LIGHT WITHIN REACH. AWAITING LABS FOR DISPO.
[2019-09-22 18:59] LABS: ALBUMIN 3.1 g/dL (3.4-5.0); ANION GAP 6 mmol/L (5-15); CALCIUM 8.5 mg/dL (8.5-10.1); CHLORIDE 110 mmol/L (98-107); CREATININE 0.62 mg/dL (0.55-1.02)
[2019-09-22] MEDS ORDERED: OXYcodone/APAP 5/325MG TABLET PO ONE (19:00)
--- NOTE | 2019-09-22 20:23 | NUR ---
ADMITTING MD IN TO SEE PT. WORKING ON IV PLACEMENT AT THIS TIME.
--- NOTE | 2019-09-22 20:56 | NUR ---
FIRST ATTEMPT TO CALL REPORT.
[2019-09-22] MEDS ORDERED: hydrALAzine 20 MG/ML, 1ML IVPush PRN (21:00)
[2019-09-22] MEDS ORDERED: ENALAPRILAT 1.25 MG/ML, 2ML IVPush PRN (21:00)
[2019-09-22] MEDS: ACETAMINOPHEN 500 MG TABLET PO SCH ×2 (21:00→22:56)
[2019-09-22] MEDS: FAMOTIDINE 40 MG TABLET PO SCH ×2 (21:00→22:55)
[2019-09-22] MEDS ORDERED: ONDANSETRON ODT 4 MG PO PRN (21:00)
[2019-09-22] MEDS ORDERED: MORPHINE SULFATE 4 MG/ML, 1ML IVPush PRN (21:00)
[2019-09-22] MEDS ORDERED: LIDOCAINE TP PRN (21:00)
[2019-09-22] MEDS ORDERED: DOCUSATE 100 MG CAPSULE PO PRN (21:00)
--- NOTE | 2019-09-22 21:11 | NUR ---
REPORT WAS CALLED TO JESSICA ARZOLA BY JESSICA TRUJILLO. FLOOR READY FOR PT. TRANSPORT.
--- NOTE | 2019-09-22 21:31 | NUR ---
AWAITING TRANSPORT AT THIS TIME .
[2019-09-22 22:04] VITALS: BP 141/83
[2019-09-22] MEDS ORDERED: FUROSEMIDE 40 MG/4 ML IV ONE (22:30)
[2019-09-22] MEDS: LIDODERM 5% PATCH TD SCH (22:30)
[2019-09-22] MEDS: GABAPENTIN 400 MG CAPSULE PO SCH ×2 (22:30→22:56)
[2019-09-22] MEDS: KETOROLAC 30 MG/1 ML IV SCH (22:55)
[2019-09-22] MEDS: ENOXAPARIN 40 MG/0.4 ML SQ SCH (22:55)
[2019-09-23] MEDS: OXYcodone IR 5MG TABLET PO PRN ×4 (00:10→21:01)
[2019-09-23 00:32] VITALS: BP 136/42
[2019-09-23 00:58] LABS: AMPHETAMINE SCREEN, URINE Negative (Negative); BARBITURATE SCREEN, URINE Negative (Negative); BENZODIAZEPINE SCREEN, URINE Positive (Negative); CANNABINOID SCREEN, URINE Negative (Negative); COCAINE SCREEN, URINE Negative (Negative); METHADONE SCREEN, URINE Negative (Negative); OPIATE SCREEN, URINE Positive (Negative)
[2019-09-23] MEDS: ALPRazolam 1MG TAB PO PRN ×2 (01:09→09:42)
[2019-09-23] MEDS: ACETAMINOPHEN 500 MG TABLET PO SCH ×4 (03:07→20:54)
[2019-09-23] MEDS: KETOROLAC 30 MG/1 ML IV SCH ×4 (04:55→23:27)
[2019-09-23 05:27] LABS: CALCIUM 8.3 mg/dL (8.5-10.1); CHLORIDE 109 mmol/L (98-107)
[2019-09-23 05:35] LABS: ANION GAP 5 mmol/L (5-15)
[2019-09-23 05:36] LABS: % IRON SATURATION 13 % (20-55); IRON LEVEL 41 mcg/dL (50-170); TOTAL IRON BINDING CAPACITY 310 mcg/dL (250-450)
[2019-09-23 06:42] VITALS: BP 117/79
[2019-09-23] MEDS: CLOPIDOGREL 75 MG TABLET PO SCH (09:06)
[2019-09-23] MEDS: NORTRIPTYLINE 25 MG CAPSULE PO SCH (09:06)
[2019-09-23] MEDS: FAMOTIDINE 40 MG TABLET PO SCH ×2 (09:07→20:54)
[2019-09-23] MEDS: ASPIRIN 81 MG TABLET EC PO SCH (09:07)
[2019-09-23] MEDS: FUROSEMIDE 20 MG TABLET PO SCH (09:07)
[2019-09-23] MEDS: FERROUS SULFATE 325 MG TABLET PO SCH (09:07)
[2019-09-23] MEDS: GABAPENTIN 400 MG CAPSULE PO SCH ×3 (09:08→20:54)
[2019-09-23 12:14] VITALS: BP 122/82
[2019-09-23] MEDS: METOPROLOL SUCCINATE 25 MG TAB.ER.24H PO SCH (17:11)
[2019-09-23 19:52] VITALS: BP 121/78
[2019-09-23] MEDS: ATORVASTATIN 80 MG TABLET PO SCH (20:54)
[2019-09-23] MEDS: ENOXAPARIN 40 MG/0.4 ML SQ SCH (20:56)
[2019-09-23] MEDS: LIDODERM 5% PATCH TD SCH (23:27)
[2019-09-24 02:09] VITALS: BP 113/73
[2019-09-24] MEDS: ACETAMINOPHEN 500 MG TABLET PO SCH ×4 (04:23→21:26)
[2019-09-24] MEDS: KETOROLAC 30 MG/1 ML IV SCH ×3 (04:23→18:16)
[2019-09-24] MEDS: OXYcodone IR 5MG TABLET PO PRN ×2 (05:06→14:32)
[2019-09-24 05:49] LABS: ANION GAP 7 mmol/L (5-15); CALCIUM 8.2 mg/dL (8.5-10.1); CHLORIDE 109 mmol/L (98-107); CREATININE 0.92 mg/dL (0.55-1.02)
[2019-09-24 07:30] VITALS: BP 128/83
[2019-09-24] MEDS: NORTRIPTYLINE 25 MG CAPSULE PO SCH (08:11)
[2019-09-24] MEDS: FAMOTIDINE 40 MG TABLET PO SCH ×2 (08:11→21:26)
[2019-09-24] MEDS: GABAPENTIN 400 MG CAPSULE PO SCH ×3 (08:11→21:25)
[2019-09-24] MEDS: ASPIRIN 81 MG TABLET EC PO SCH (08:11)
[2019-09-24] MEDS: FERROUS SULFATE 325 MG TABLET PO SCH (08:11)
[2019-09-24] MEDS: CLOPIDOGREL 75 MG TABLET PO SCH (08:11)
[2019-09-24] MEDS: FUROSEMIDE 20 MG TABLET PO SCH (08:12)
[2019-09-24] MEDS: ALPRazolam 1MG TAB PO PRN (08:21)
[2019-09-24 12:39] VITALS: BP 120/81
[2019-09-24] MEDS: METOPROLOL SUCCINATE 25 MG TAB.ER.24H PO SCH (18:16)
[2019-09-24 19:40] VITALS: BP 137/83
[2019-09-24] MEDS: ENOXAPARIN 40 MG/0.4 ML SQ SCH (21:00)
[2019-09-24] MEDS: ATORVASTATIN 80 MG TABLET PO SCH (21:25)
[2019-09-24] MEDS: LIDODERM 5% PATCH TD SCH (21:25)
[2019-09-25 00:42] VITALS: BP 124/83
[2019-09-25] MEDS: KETOROLAC 30 MG/1 ML IV SCH ×4 (00:43→18:06)
[2019-09-25] MEDS: ACETAMINOPHEN 500 MG TABLET PO SCH ×4 (03:34→21:16)
[2019-09-25] MEDS: OXYcodone IR 5MG TABLET PO PRN ×3 (05:23→21:20)
[2019-09-25] MEDS: ALPRazolam 1MG TAB PO PRN ×2 (05:27→18:07)
[2019-09-25] MEDS: FUROSEMIDE 20 MG TABLET PO SCH (08:27)
[2019-09-25] MEDS: NORTRIPTYLINE 25 MG CAPSULE PO SCH (08:27)
[2019-09-25] MEDS: FERROUS SULFATE 325 MG TABLET PO SCH (08:27)
[2019-09-25] MEDS: ASPIRIN 81 MG TABLET EC PO SCH (08:27)
[2019-09-25] MEDS: CLOPIDOGREL 75 MG TABLET PO SCH (08:27)
[2019-09-25] MEDS: GABAPENTIN 400 MG CAPSULE PO SCH ×3 (08:27→21:16)
[2019-09-25] MEDS: FAMOTIDINE 40 MG TABLET PO SCH ×2 (08:27→21:16)
[2019-09-25 08:37] VITALS: BP 127/83
[2019-09-25 12:55] VITALS: BP 106/63
[2019-09-25] MEDS: hydrOXyzine 10 MG/5 ML ORAL SOL PO PRN ×2 (15:30→21:20)
[2019-09-25] MEDS: METOPROLOL SUCCINATE 25 MG TAB.ER.24H PO SCH (18:06)
[2019-09-25 19:31] VITALS: BP 112/76
[2019-09-25] MEDS: ENOXAPARIN 40 MG/0.4 ML SQ SCH (21:00)
[2019-09-25] MEDS: ATORVASTATIN 80 MG TABLET PO SCH (21:16)
[2019-09-25] MEDS: LIDODERM 5% PATCH TD SCH (21:17)
[2019-09-26 00:55] VITALS: BP 124/83
[2019-09-26] MEDS: ACETAMINOPHEN 500 MG TABLET PO SCH ×4 (03:02→23:00)
[2019-09-26] MEDS: OXYcodone IR 5MG TABLET PO PRN ×5 (03:04→22:23)
[2019-09-26 06:50] VITALS: BP 114/77
[2019-09-26] MEDS: NORTRIPTYLINE 25 MG CAPSULE PO SCH (08:16)
[2019-09-26] MEDS: FERROUS SULFATE 325 MG TABLET PO SCH (08:17)
[2019-09-26] MEDS: CLOPIDOGREL 75 MG TABLET PO SCH (08:17)
[2019-09-26] MEDS: GABAPENTIN 400 MG CAPSULE PO SCH ×3 (08:17→20:56)
[2019-09-26] MEDS: FUROSEMIDE 20 MG TABLET PO SCH (08:17)
[2019-09-26] MEDS: ASPIRIN 81 MG TABLET EC PO SCH (08:17)
[2019-09-26] MEDS: FAMOTIDINE 40 MG TABLET PO SCH ×2 (08:17→20:55)
[2019-09-26] MEDS: hydrOXyzine 10 MG/5 ML ORAL SOL PO PRN (08:24)
[2019-09-26] MEDS: KETOROLAC 30 MG/1 ML IVPush SCH ×3 (10:54→23:34)
[2019-09-26 12:35] VITALS: BP 128/85
[2019-09-26 17:14] VITALS: BP 110/73
[2019-09-26] MEDS: METOPROLOL SUCCINATE 25 MG TAB.ER.24H PO SCH (17:16)
[2019-09-26 20:00] VITALS: BP 140/89
[2019-09-26] MEDS: ENOXAPARIN 40 MG/0.4 ML SQ SCH (20:55)
[2019-09-26] MEDS: ATORVASTATIN 80 MG TABLET PO SCH (20:56)
[2019-09-26] MEDS: LIDODERM 5% PATCH TD SCH (22:23)
[2019-09-27 02:10] VITALS: BP 132/80
[2019-09-27] MEDS: ACETAMINOPHEN 500 MG TABLET PO SCH ×4 (05:00→23:18)
[2019-09-27] MEDS: KETOROLAC 30 MG/1 ML IVPush SCH ×4 (05:20→23:18)
[2019-09-27] MEDS: OXYcodone IR 5MG TABLET PO PRN ×3 (05:48→18:13)
[2019-09-27] MEDS: NORTRIPTYLINE 25 MG CAPSULE PO SCH (08:11)
[2019-09-27] MEDS: FERROUS SULFATE 325 MG TABLET PO SCH (08:11)
[2019-09-27] MEDS: ALPRazolam 1MG TAB PO PRN (08:11)
[2019-09-27] MEDS: FUROSEMIDE 20 MG TABLET PO SCH (08:11)
[2019-09-27] MEDS: GABAPENTIN 400 MG CAPSULE PO SCH ×3 (08:11→20:06)
[2019-09-27] MEDS: CLOPIDOGREL 75 MG TABLET PO SCH (08:11)
[2019-09-27] MEDS: FAMOTIDINE 40 MG TABLET PO SCH ×2 (08:11→20:06)
[2019-09-27] MEDS: ASPIRIN 81 MG TABLET EC PO SCH (08:12)
[2019-09-27 08:28] VITALS: BP 135/83
[2019-09-27 13:28] VITALS: BP 136/90
[2019-09-27] MEDS: METOPROLOL SUCCINATE 25 MG TAB.ER.24H PO SCH (16:34)
[2019-09-27 19:19] VITALS: BP 129/82
[2019-09-27] MEDS: ATORVASTATIN 80 MG TABLET PO SCH (20:06)
[2019-09-27] MEDS: hydrOXyzine 10 MG/5 ML ORAL SOL PO PRN (20:07)
[2019-09-27] MEDS: LIDODERM 5% PATCH TD SCH (22:30)
[2019-09-27] MEDS: ENOXAPARIN 40 MG/0.4 ML SQ SCH (23:18)
[2019-09-28 00:48] VITALS: BP 122/78
[2019-09-28] MEDS: ACETAMINOPHEN 500 MG TABLET PO SCH ×4 (05:15→22:31)
[2019-09-28] MEDS: OXYcodone IR 5MG TABLET PO PRN ×4 (06:36→21:30)
[2019-09-28 07:20] VITALS: BP 137/84
[2019-09-28] MEDS: FAMOTIDINE 40 MG TABLET PO SCH ×2 (08:05→21:29)
[2019-09-28] MEDS: GABAPENTIN 400 MG CAPSULE PO SCH ×3 (08:06→21:30)
[2019-09-28] MEDS: NORTRIPTYLINE 25 MG CAPSULE PO SCH (08:06)
[2019-09-28] MEDS: ASPIRIN 81 MG TABLET EC PO SCH (08:06)
[2019-09-28] MEDS: FUROSEMIDE 20 MG TABLET PO SCH (08:06)
[2019-09-28] MEDS: CLOPIDOGREL 75 MG TABLET PO SCH (08:06)
[2019-09-28] MEDS: ALPRazolam 1MG TAB PO PRN (08:06)
[2019-09-28] MEDS: FERROUS SULFATE 325 MG TABLET PO SCH (08:06)
[2019-09-28] MEDS: LIDODERM 5% PATCH TD SCH (08:07)
[2019-09-28 12:51] VITALS: BP 137/71
[2019-09-28] MEDS: NICOTINE 7 MG/24 HR PATCH.TD24 TD SCH (14:51)
[2019-09-28] MEDS: METOPROLOL SUCCINATE 25 MG TAB.ER.24H PO SCH (17:37)
[2019-09-28] MEDS: ATORVASTATIN 80 MG TABLET PO SCH (21:30)
[2019-09-28] MEDS: ENOXAPARIN 40 MG/0.4 ML SQ SCH (21:33)
[2019-09-29 00:33] VITALS: BP 132/87
[2019-09-29] MEDS: OXYcodone IR 5MG TABLET PO PRN ×5 (01:39→21:16)
[2019-09-29] MEDS: ACETAMINOPHEN 500 MG TABLET PO SCH ×4 (04:36→23:37)
[2019-09-29 07:34] VITALS: BP 123/78
[2019-09-29] MEDS: NORTRIPTYLINE 25 MG CAPSULE PO SCH (09:20)
[2019-09-29] MEDS: FERROUS SULFATE 325 MG TABLET PO SCH (09:20)
[2019-09-29] MEDS: LIDODERM 5% PATCH TD SCH (09:20)
[2019-09-29] MEDS: FUROSEMIDE 20 MG TABLET PO SCH (09:20)
[2019-09-29] MEDS: ASPIRIN 81 MG TABLET EC PO SCH (09:20)
[2019-09-29] MEDS: GABAPENTIN 400 MG CAPSULE PO SCH ×3 (09:20→20:40)
[2019-09-29] MEDS: CLOPIDOGREL 75 MG TABLET PO SCH (09:20)
[2019-09-29] MEDS: FAMOTIDINE 40 MG TABLET PO SCH ×2 (09:20→20:40)
[2019-09-29] MEDS: ALPRazolam 1MG TAB PO PRN (11:43)
[2019-09-29 12:39] VITALS: BP 138/89
[2019-09-29] MEDS ORDERED: OXYC5TAB3 PO (14:34)
[2019-09-29] MEDS ORDERED: NICO-485 TD (14:34)
[2019-09-29] MEDS ORDERED: ALPR1TAB6 PO (14:34)
[2019-09-29] MEDS ORDERED: FERR-51 PO (14:34)
[2019-09-29] MEDS ORDERED: HYDR-826 PO (14:34)
[2019-09-29] MEDS: NICOTINE 7 MG/24 HR PATCH.TD24 TD SCH (14:57)
[2019-09-29] MEDS: METOPROLOL SUCCINATE 25 MG TAB.ER.24H PO SCH (18:21)
[2019-09-29 18:53] VITALS: BP 124/85
[2019-09-29] MEDS: ATORVASTATIN 80 MG TABLET PO SCH (20:40)
[2019-09-29] MEDS: ENOXAPARIN 40 MG/0.4 ML SQ SCH (20:40)
[2019-09-30 00:34] VITALS: BP 131/88
[2019-09-30] MEDS: ACETAMINOPHEN 500 MG TABLET PO SCH (05:29)
[2019-09-30] MEDS: OXYcodone IR 5MG TABLET PO PRN ×2 (05:30→11:37)
[2019-09-30 07:26] VITALS: BP 123/80
[2019-09-30] MEDS: FUROSEMIDE 20 MG TABLET PO SCH (08:09)
[2019-09-30] MEDS: GABAPENTIN 400 MG CAPSULE PO SCH (08:09)
[2019-09-30] MEDS: NORTRIPTYLINE 25 MG CAPSULE PO SCH (08:09)
[2019-09-30] MEDS: ALPRazolam 1MG TAB PO PRN (08:09)
[2019-09-30] MEDS: CLOPIDOGREL 75 MG TABLET PO SCH (08:09)
[2019-09-30] MEDS: FAMOTIDINE 40 MG TABLET PO SCH (08:09)
[2019-09-30] MEDS: ASPIRIN 81 MG TABLET EC PO SCH (08:09)
[2019-09-30] MEDS: FERROUS SULFATE 325 MG TABLET PO SCH (08:09)
[2019-09-30] MEDS: LIDODERM 5% PATCH TD SCH (08:10)
== END 2019-09-30 12:00 | DRG 347 ==
LOC: ED 19:54 → EDIP 19:59 → ED 20:37 → 3N 21:55
PROVIDERS: ADMIT Family Medicine; ATTEND Family Medicine
DX: M48.061 Spinal stenosis, lumbar region without neurogenic claudication (principal); I11.0 Hypertensive heart disease with heart failure; I50.9 Heart failure, unspecified; D50.9 Iron deficiency anemia, unspecified; F17.210 Nicotine dependence, cigarettes, uncomplicated; F41.9 Anxiety disorder, unspecified; E11.9 Type 2 diabetes mellitus without complications; G89.29 Other chronic pain; I25.10 Atherosclerotic heart disease of native coronary artery without angina pectoris; R32 Unspecified urinary incontinence; M79.7 Fibromyalgia; M25.511 Pain in right shoulder; I25.2 Old myocardial infarction; Z79.4 Long term (current) use of insulin; Z95.1 Presence of aortocoronary bypass graft
CPT/HCPCS: 36415; 70450; 72125; 80048; 80307; 82040; 82728; 83540; 83550; 85025; 93005; 96372; 99285; G0378; J1650; J1885; J1940; J2270; Q0177

== ENCOUNTER 2020-05-18 16:07 | Emergency (ER) | payer MEDICAID ==
[~2020-05-18 16:07] MED LIST changes: +ALPR1TAB6 PO; +FERR-51 PO; +HYDR-826 PO; +NICO-485 TD; +SIMV20TA19 PO; -SIMV20TA3 PO
[2020-05-18] MEDS ORDERED: KETOROLAC 30 MG/1 ML IM ONE (16:30)
[2020-05-18] MEDS ORDERED: HYDROmorphone 2 MG/ML, 1ML IM ONE (16:30)
[2020-05-18 17:11] LABS: BASOPHILS # (AUTO) 0.01 x10^3/uL (0-0.1); BASOPHILS % (AUTO) 0 % (0-1); EOSINOPHILS # (AUTO) 0.12 x10^3/uL (0-0.4); EOSINOPHILS % (AUTO) 1 % (1-7); LYMPHOCYTES # (AUTO) 1.33 x10^3/uL (1-3.4); LYMPHOCYTES % (AUTO) 16 % (22-44); MD NO; MEAN CORPUSCULAR HEMOGLOBIN 28.8 pg (27.0-34.8); MEAN CORPUSCULAR HGB CONC 32.7 g/dL (32.4-35.8); MEAN PLATELET VOLUME 8.9 fL (7.4-10.4); MONOCYTES % (AUTO) 4 % (2-9); NEUTROPHILS % (AUTO) 79 % (42-75); PLATELET COUNT 267 x10^3/uL (130-400); RED BLOOD COUNT 4.61 x10^6/uL (3.82-5.3); RED CELL DISTRIBUTION WIDTH 15.6 % (9.6-15.2)
[2020-05-18 17:20] LABS: ALBUMIN 3.6 g/dL (3.4-5.0); ANION GAP 8 mmol/L (5-15); CALCIUM 9.2 mg/dL (8.5-10.1); CHLORIDE 107 mmol/L (98-107); CREATININE 0.78 mg/dL (0.55-1.02)
--- NOTE | 2020-05-18 18:23 | NUR ---
ACCOUNT ANALYST: PT WHEELED BACK FROM THE LOBBY TO ROOM. PT ABLE TO TRANSFER SELF TO [facility] W/O DIFFICULTY.
[2020-05-18] MEDS ORDERED: DIAZEPAM 5 MG TABLET PO ONE (18:38)
[2020-05-18] MEDS ORDERED: DIAZEPAM 5 MG TABLET ONE (18:45)
[2020-05-18] MEDS ORDERED: KETOROLAC 30 MG/1 ML ONE (18:45)
[2020-05-18] MEDS ORDERED: HYDROmorphone 1 MG/ML, 1ML INJ ONE ×2 (18:46→20:07)
--- NOTE | 2020-05-18 19:00 | NUR ---
PT MEDICATED PER ORDERS, STATES THIS IS THE WORST BACK PAIN SHE'S HAD IN HER LIFE. UA SENT. PT UNDERSTANDS POC.
[2020-05-18 19:24] LABS: MICROSCOPIC AUTO
--- NOTE | 2020-05-18 20:19 | NUR ---
states ok to give dilaudid im. Given IM.
[2020-05-18] MEDS ORDERED: HYDROmorphone 2 MG/ML, 1ML IVPush PRN (20:30)
--- NOTE | 2020-05-18 21:15 | NUR ---
PT AMBULATED IN ROOM WITH FWW, STATES SHE FEELS READY TO BE DISCHARGED. ERP NOTIFIED.
[2020-05-18 21:39] VITALS: BP 170/99
== END 2020-05-18 21:40 | disposition home or self-care (01) ==
LOC: ED 18:28
DX: M51.36 Other intervertebral disc degeneration, lumbar region (principal); G89.29 Other chronic pain; E11.9 Type 2 diabetes mellitus without complications; I10 Essential (primary) hypertension; K21.9 Gastro-esophageal reflux disease without esophagitis; I25.2 Old myocardial infarction; M79.7 Fibromyalgia; Z86.73 Personal history of transient ischemic attack (TIA), and cerebral infarction without residual deficits
CPT/HCPCS: 36415; 80048; 81001; 82040; 85025; 87086; 96372; 96374; 99284; J1170; J1885

== ENCOUNTER 2020-05-31 18:00 | Observation (INO) | payer MEDICAID ==
[~2020-05-31] VITALS: Ht 167.6 cm; Wt 134.0 kg
--- NOTE | 2020-05-31 18:34 | NUR ---
Patient presents to ER c/o low back pain for several days which radiates to entire back and CP x1 day. Patient self admin Tylenol, Robaxin, and Gabapentin with no relief. Patient has a hx of 7 MIs. Patient is unsure if this feels the same. Patient has also had intermittent nausea, no vomiting. Slight SOB intermittently. Patient is in NAD. Respirations even and unlabored.
[2020-05-31] MEDS ORDERED: ASPIRIN 81 MG TABLET CHEW PO ONE (19:00)
[2020-05-31] MEDS ORDERED: SODIUM CHLORIDE FLUSH 10ML SYR IVF ONE (19:00)
[2020-05-31 19:16] LABS: BASOPHILS # (AUTO) 0.01 x10^3/uL (0-0.1); BASOPHILS % (AUTO) 0 % (0-1); EOSINOPHILS # (AUTO) 0.19 x10^3/uL (0-0.4); EOSINOPHILS % (AUTO) 3 % (1-7); LYMPHOCYTES # (AUTO) 1.63 x10^3/uL (1-3.4); LYMPHOCYTES % (AUTO) 24 % (22-44); MD NO; MEAN CORPUSCULAR HEMOGLOBIN 28.5 pg (27.0-34.8); MEAN CORPUSCULAR HGB CONC 32.6 g/dL (32.4-35.8); MEAN CORPUSCULAR VOLUME 87.4 fL (80-100); MEAN PLATELET VOLUME 8.5 fL (7.4-10.4); MONOCYTES % (AUTO) 6 % (2-9); NEUTROPHILS # (AUTO) 4.67 x10^3/uL (1.8-6.8); NEUTROPHILS % (AUTO) 68 % (42-75); PLATELET COUNT 209 x10^3/uL (130-400); RED BLOOD COUNT 4.61 x10^6/uL (3.82-5.3); RED CELL DISTRIBUTION WIDTH 16.5 % (9.6-15.2)
[2020-05-31 19:27] LABS: ALBUMIN 3.2 g/dL (3.4-5.0); ANION GAP 7 mmol/L (5-15); CALCIUM 8.7 mg/dL (8.5-10.1); CHLORIDE 108 mmol/L (98-107)
[2020-05-31] MEDS ORDERED: ASPIRIN 81 MG TABLET CHEW ONE (19:27)
[2020-05-31 19:29] LABS: ALANINE AMINOTRANSFERASE 19 U/L (12-78); ALKALINE PHOSPHATASE 145 U/L (45-117); BILIRUBIN,TOTAL 0.1 mg/dL (0.2-1.0); CREATININE 0.86 mg/dL (0.55-1.02); TOTAL PROTEIN 7.4 g/dL (6.4-8.2)
--- NOTE | 2020-05-31 20:48 | NUR ---
Report given to JESSICA Stoddard. Patient to be transferred to room 516.
[2020-05-31] MEDS ORDERED: BISACODYL 10 MG SUPP PR PRN (21:00)
[2020-05-31] MEDS ORDERED: ACETAMINOPHEN 325 MG TABLET PO PRN (21:00)
[2020-05-31] MEDS ORDERED: ALPRazolam 1MG TAB PO PRN (21:00)
[2020-05-31] MEDS ORDERED: NITROGLYCERIN 0.4 MG BOTTLE (25 TABS) SL PRN (21:00)
[2020-05-31] MEDS ORDERED: POLYETHYLENE GLYCOL 17 GM PACKET PO PRN (21:00)
[2020-05-31] MEDS ORDERED: ONDANSETRON ODT 4 MG PO PRN (21:00)
--- NOTE | 2020-05-31 21:08 | NUR ---
Multiple iv times unsuccessful, this rn utilized us machine to successfully place iv.
[2020-05-31] MEDS ORDERED: [UNRECOGNIZED DRUG - REMARK] MC SCH (21:30)
[2020-05-31] MEDS ORDERED: FAMOTIDINE 20 MG TABLET ONE (22:00)
[2020-05-31] MEDS: SODIUM CHLORIDE FLUSH 10ML SYR IVF SCH (22:11)
[2020-05-31] MEDS: FAMOTIDINE 40 MG TABLET PO SCH (22:11)
[2020-05-31] MEDS: morphine SULFATE 10 MG/ML, 1ML IVPush PRN (22:11)
[2020-05-31] MEDS: LIDODERM 5% PATCH TD SCH (22:12)
[2020-05-31] MEDS: GABAPENTIN 400 MG CAPSULE PO SCH (22:12)
[2020-05-31] MEDS: NICOTINE 14MG/24 HR PATCH.TD24 TD SCH (22:12)
[2020-05-31 22:22] VITALS: BP 127/85
[2020-06-01 01:09] VITALS: BP 123/84
[2020-06-01 01:30] LABS: TROPONIN I 0.019 ng/mL (0.000-0.045)
[2020-06-01] MEDS ORDERED: METHOCARBAMOL 500 MG TABLET PO ONE (03:30)
[2020-06-01] MEDS ORDERED: METHOCARBAMOL 500 MG TABLET ONE (03:34)
[2020-06-01] MEDS: morphine SULFATE 10 MG/ML, 1ML IVPush PRN ×3 (05:11→13:31)
[2020-06-01 06:41] VITALS: BP 101/62
[2020-06-01 07:57] LABS: TROPONIN I 0.016 ng/mL (0.000-0.045)
[2020-06-01] MEDS ORDERED: REGADENOSON 0.4 MG/5 ML SYRINGE ONE (09:05)
[2020-06-01] MEDS: ATORVASTATIN 80 MG TABLET PO SCH (09:19)
[2020-06-01] MEDS: NORTRIPTYLINE 25 MG CAPSULE PO SCH (09:19)
[2020-06-01] MEDS: FAMOTIDINE 40 MG TABLET PO SCH ×2 (09:19→20:21)
[2020-06-01] MEDS: GABAPENTIN 400 MG CAPSULE PO SCH ×3 (09:19→20:21)
[2020-06-01] MEDS: ASPIRIN 81 MG TABLET EC PO SCH (09:19)
[2020-06-01] MEDS: SENNA/DOCUSATE TABLET PO SCH (09:19)
[2020-06-01] MEDS: CLOPIDOGREL 75 MG TABLET PO SCH (09:19)
[2020-06-01] MEDS: SODIUM CHLORIDE FLUSH 10ML SYR IVF SCH ×2 (09:20→20:23)
[2020-06-01 13:15] VITALS: BP 99/59
[2020-06-01] MEDS: METHOCARBAMOL 750 MG TABLET PO PRN (16:19)
[2020-06-01] MEDS: MORPHINE SULFATE 4 MG/ML, 1ML IVPush PRN ×2 (17:55→22:06)
[2020-06-01] MEDS ORDERED: METOPROLOL SUCCINATE 25 MG TAB.ER.24H PO SCH (18:00)
[2020-06-01 20:16] VITALS: BP 138/88
[2020-06-01] MEDS: ALPRazolam 1MG TAB PO PRN (20:22)
[2020-06-01] MEDS: NICOTINE 14MG/24 HR PATCH.TD24 TD SCH (20:23)
[2020-06-01] MEDS: LIDODERM 5% PATCH TD SCH (20:23)
[2020-06-02 00:05] VITALS: BP 113/79
[2020-06-02] MEDS: METHOCARBAMOL 750 MG TABLET PO PRN ×2 (00:07→08:49)
[2020-06-02] MEDS: MORPHINE SULFATE 4 MG/ML, 1ML IVPush PRN ×3 (02:06→10:27)
[2020-06-02 06:50] VITALS: BP 123/83
[2020-06-02] MEDS: ATORVASTATIN 80 MG TABLET PO SCH (08:48)
[2020-06-02] MEDS: CLOPIDOGREL 75 MG TABLET PO SCH (08:48)
[2020-06-02] MEDS: GABAPENTIN 400 MG CAPSULE PO SCH ×2 (08:48→14:50)
[2020-06-02] MEDS: NORTRIPTYLINE 25 MG CAPSULE PO SCH (08:48)
[2020-06-02] MEDS: ASPIRIN 81 MG TABLET EC PO SCH (08:48)
[2020-06-02] MEDS: FAMOTIDINE 40 MG TABLET PO SCH (08:49)
[2020-06-02] MEDS: ALPRazolam 1MG TAB PO PRN (08:57)
[2020-06-02] MEDS: SENNA/DOCUSATE TABLET PO SCH (09:00)
[2020-06-02 13:49] VITALS: BP 121/82
[2020-06-02] MEDS ORDERED: HYDR-3241 PO (13:49)
[2020-06-02] MEDS ORDERED: HYDR-3237 PO (13:52)
== END 2020-06-02 16:10 | disposition home or self-care (01) ==
LOC: ED 19:21 → EDIP 20:26 → INTOOBSV 20:26 → 5SO 21:24 → DCLOUNGE 06-02 16:00
PROVIDERS: ADMIT Internal Medicine; ATTEND Internal Medicine
DX: R07.9 Chest pain, unspecified (principal); E78.5 Hyperlipidemia, unspecified; E66.01 Morbid (severe) obesity due to excess calories; I25.10 Atherosclerotic heart disease of native coronary artery without angina pectoris; I50.9 Heart failure, unspecified; I11.0 Hypertensive heart disease with heart failure; M48.00 Spinal stenosis, site unspecified; F17.210 Nicotine dependence, cigarettes, uncomplicated; E11.9 Type 2 diabetes mellitus without complications; M79.7 Fibromyalgia; G89.29 Other chronic pain; I25.2 Old myocardial infarction; Z86.73 Personal history of transient ischemic attack (TIA), and cerebral infarction without residual deficits; Z95.1 Presence of aortocoronary bypass graft
CPT/HCPCS: 36415; 71045; 78452; 80053; 84484; 85025; 93005; 93017; 96374; 96376; 99285; A9502; C8929; G0378; J2270; J2785

== ENCOUNTER 2021-05-30 13:10 | Inpatient (IN) | payer MEDICAID ==
[~2021-05-30] VITALS: Ht 167.6 cm; Wt 139.2 kg
[~2021-05-30 13:10] MED LIST changes: +ALPR-585 PO; -ALPR1TAB6 PO; -CYCL-259 PO; +CYCL10TA2 PO; +HYDR-3241 PO; -HYDR-3245 PO; +HYDR1TAB53 PO; -LISI-420 PO; -LISI-424 PO; +LISI-606 PO; +LISI20TA21 PO; -OXYC5TAB3 PO; +OXYC5TAB98 PO
[2021-05-30] MEDS ORDERED: ASPIRIN 81 MG TABLET CHEW PO ONE (13:30)
[2021-05-30] MEDS ORDERED: MORPHINE SULFATE 4 MG/ML, 1ML IVPush PRN (13:30)
[2021-05-30] MEDS ORDERED: ONDANSETRON 2MG/ML, 2ML IVPush ONE (13:30)
[2021-05-30] MEDS ORDERED: ASPIRIN 81 MG TABLET CHEW ONE (13:39)
[2021-05-30] MEDS ORDERED: ONDANSETRON 2MG/ML, 2ML ONE (13:39)
[2021-05-30] MEDS ORDERED: MORPHINE SULFATE 4 MG/ML, 1ML ONE (13:39)
[2021-05-30 13:51] LABS: BASOPHILS % (AUTO) 1 % (0-1); EOSINOPHILS % (AUTO) 2 % (1-7); LYMPHOCYTES % (AUTO) 9 % (22-44); MEAN CORPUSCULAR HEMOGLOBIN 27.4 pg (27.0-34.8); MEAN CORPUSCULAR HGB CONC 32.7 g/dL (32.4-35.8); MEAN PLATELET VOLUME 7.4 fL (7.4-10.4); MONOCYTES % (AUTO) 5 % (2-9); NEUTROPHILS % (AUTO) 83 % (42-75); PLATELET COUNT 270 x10^3/uL (130-400); RED BLOOD COUNT 4.38 x10^6/uL (3.82-5.3); RED CELL DISTRIBUTION WIDTH 14.7 % (9.6-15.2)
[2021-05-30 14:02] LABS: ALBUMIN 3.2 g/dL (3.4-5.0); ANION GAP 9 mmol/L (5-15); CALCIUM 8.6 mg/dL (8.5-10.1); CHLORIDE 107 mmol/L (98-107)
[2021-05-30 14:05] LABS: ALANINE AMINOTRANSFERASE 13 U/L (12-78); ALKALINE PHOSPHATASE 109 U/L (45-117); BILIRUBIN,TOTAL 0.5 mg/dL (0.2-1.0); CREATININE 0.42 mg/dL (0.55-1.02); TOTAL PROTEIN 7.5 g/dL (6.4-8.2)
--- NOTE | 2021-05-30 14:05 | NUR ---
PT BIBA. PER EMS PT HAS EPIGASTRIC PAIN X2 DAYS. PT HAS HX OF [place] AND STATES THIS FEELS SIMILAR. PT ALSO HAD BACK SURGERY 1 YEAR AGO AND HAS BEEN BEDBOUND SINCE. 20G PIV PLACED IN R THUMB CHILD [facility]OL[facility]. PT RESTING IN RNEY, MONITORING IN PLACE, EKG DONE, WCTM.
[2021-05-30 14:09] LABS: TROPONIN I 0.124 ng/mL (0.000-0.045)
[2021-05-30 16:03] VITALS: BP 129/86
[2021-05-30 17:38] VITALS: BP 120/72
[2021-05-30] MEDS ORDERED: POLYETHYLENE GLYCOL 17 GM PACKET PO PRN (19:00)
[2021-05-30] MEDS ORDERED: BACLOFEN 10 MG TABLET PO PRN (19:00)
[2021-05-30] MEDS ORDERED: TEMAZEPAM 15 MG CAPSULE PO PRN (19:00)
[2021-05-30] MEDS ORDERED: ONDANSETRON 2MG/ML, 2ML IVPush PRN (19:00)
[2021-05-30] MEDS ORDERED: LIDOCAINE TP PRN (19:00)
[2021-05-30] MEDS ORDERED: hydrALAzine 20 MG/ML, 1ML IVPush PRN (19:00)
[2021-05-30] MEDS ORDERED: DOCUSATE 100 MG CAPSULE PO PRN (19:00)
[2021-05-30] MEDS ORDERED: MELATONIN 5 MG TABLET PO PRN (19:00)
[2021-05-30] MEDS ORDERED: BISACODYL 10 MG SUPP PR PRN (19:00)
[2021-05-30] MEDS ORDERED: LIDODERM 5% PATCH TD PRN (19:00)
[2021-05-30 19:23] VITALS: BP 156/88
[2021-05-30 19:27] LABS: TROPONIN I 0.116 ng/mL (0.000-0.045)
[2021-05-30] MEDS: HEPARIN 5,000 UNITS/ML, 1ML SQ SCH (20:21)
[2021-05-30] MEDS: PREGABALIN 150 MG CAPSULE PO SCH (20:21)
[2021-05-30] MEDS: METOPROLOL TARTRATE 25 MG TAB PO SCH (20:21)
[2021-05-30] MEDS: MORPHINE SULFATE 4 MG/ML, 1ML IV PRN (20:30)
[2021-05-31 01:57] VITALS: BP 127/76
[2021-05-31 05:10] VITALS: BP 145/83
[2021-05-31] MEDS: HEPARIN 5,000 UNITS/ML, 1ML SQ SCH ×3 (05:13→19:53)
[2021-05-31] MEDS: PANTOPRAZOLE 40MG TABLET PO SCH (05:13)
[2021-05-31] MEDS: MORPHINE SULFATE 4 MG/ML, 1ML IV PRN ×3 (05:13→19:54)
[2021-05-31] MEDS: METOPROLOL TARTRATE 25 MG TAB PO SCH ×2 (05:15→17:25)
[2021-05-31 05:50] LABS: BASOPHILS % (AUTO) 0 % (0-1); CHLORIDE 103 mmol/L (98-107); EOSINOPHILS % (AUTO) 5 % (1-7); LYMPHOCYTES % (AUTO) 12 % (22-44); MEAN CORPUSCULAR HEMOGLOBIN 27.8 pg (27.0-34.8); MEAN CORPUSCULAR HGB CONC 32.8 g/dL (32.4-35.8); MEAN PLATELET VOLUME 8.1 fL (7.4-10.4); MONOCYTES % (AUTO) 6 % (2-9); NEUTROPHILS % (AUTO) 77 % (42-75); PLATELET COUNT 242 x10^3/uL (130-400); RED BLOOD COUNT 4.26 x10^6/uL (3.82-5.3); RED CELL DISTRIBUTION WIDTH 14.8 % (9.6-15.2)
[2021-05-31 05:58] LABS: MICROSCOPIC NOT IND
[2021-05-31 06:02] LABS: ALANINE AMINOTRANSFERASE 11 U/L (12-78); ALBUMIN 3.1 g/dL (3.4-5.0); ALKALINE PHOSPHATASE 104 U/L (45-117); ANION GAP 7 mmol/L (5-15); BILIRUBIN,TOTAL 0.3 mg/dL (0.2-1.0); CALCIUM 8.6 mg/dL (8.5-10.1); CHOLESTEROL, TOTAL 181 mg/dL (140-239); CREATININE 0.43 mg/dL (0.55-1.02); HDL CHOL % 20 % (28-40); HDL CHOLESTEROL (DIRECT) 36 mg/dL (40-60); LDL CHOLESTEROL,CALCULATED 111 mg/dL (54-169); LDL/HDL RATIO 3.1 (0.5-3.0); TOTAL PROTEIN 7.2 g/dL (6.4-8.2); TRIGLYCERIDES 168 mg/dL (50-200); VLDL CHOLESTEROL 34 mg/dL (0-25)
[2021-05-31 06:35] VITALS: BP 135/82
[2021-05-31] MEDS ORDERED: MAGNESIUM SULFATE 3 GM in SODIUM CHLORIDE 0.9% 100 ML IV ONE (07:00)
[2021-05-31] MEDS ORDERED: POTASSIUM CHLORIDE 40 MEQ in SODIUM CHLORIDE 0.9% 500 ML IV ONE (07:00)
[2021-05-31] MEDS: PREGABALIN 150 MG CAPSULE PO SCH ×3 (08:32→19:53)
[2021-05-31] MEDS: ASPIRIN 81 MG TABLET EC PO SCH (08:32)
[2021-05-31] MEDS: CLOPIDOGREL 75 MG TABLET PO SCH (08:32)
[2021-05-31] MEDS: ATORVASTATIN 80 MG TABLET PO SCH (08:33)
[2021-05-31] MEDS ORDERED: AMIODARONE 150 MG in DEXTROSE 5% 100 ML IV ONE (13:00)
[2021-05-31] MEDS ORDERED: AMIODARONE 450 MG in DEXTROSE 5% 241 ML IV PRN (13:30)
[2021-05-31 14:12] VITALS: BP 110/73
[2021-05-31 18:36] VITALS: BP 114/73
[2021-05-31 20:23] VITALS: BP 95/57
[2021-06-01 00:52] VITALS: BP 100/68
[2021-06-01] MEDS: MORPHINE SULFATE 4 MG/ML, 1ML IV PRN ×3 (03:20→16:23)
[2021-06-01 04:49] LABS: BASOPHILS % (AUTO) 0 % (0-1); EOSINOPHILS % (AUTO) 5 % (1-7); LYMPHOCYTES % (AUTO) 11 % (22-44); MEAN CORPUSCULAR HEMOGLOBIN 27.7 pg (27.0-34.8); MEAN CORPUSCULAR HGB CONC 32.8 g/dL (32.4-35.8); MEAN PLATELET VOLUME 7.9 fL (7.4-10.4); MONOCYTES % (AUTO) 7 % (2-9); NEUTROPHILS % (AUTO) 78 % (42-75); PLATELET COUNT 256 x10^3/uL (130-400); RED BLOOD COUNT 3.94 x10^6/uL (3.82-5.3); RED CELL DISTRIBUTION WIDTH 14.9 % (9.6-15.2)
[2021-06-01 05:00] LABS: ANION GAP 4 mmol/L (5-15); CALCIUM 8.3 mg/dL (8.5-10.1); CHLORIDE 105 mmol/L (98-107); CREATININE 0.52 mg/dL (0.55-1.02)
[2021-06-01 05:32] VITALS: BP 112/71
[2021-06-01] MEDS: PANTOPRAZOLE 40MG TABLET PO SCH ×3 (05:42→20:46)
[2021-06-01] MEDS: HEPARIN 5,000 UNITS/ML, 1ML SQ SCH ×3 (05:42→20:46)
[2021-06-01] MEDS: METOPROLOL TARTRATE 25 MG TAB PO SCH ×2 (05:42→17:41)
[2021-06-01 07:43] VITALS: BP 108/72
[2021-06-01] MEDS: PREGABALIN 150 MG CAPSULE PO SCH ×3 (08:48→20:46)
[2021-06-01] MEDS: ATORVASTATIN 80 MG TABLET PO SCH (08:49)
[2021-06-01] MEDS: CLOPIDOGREL 75 MG TABLET PO SCH (08:50)
[2021-06-01] MEDS: ASPIRIN 81 MG TABLET EC PO SCH (08:50)
[2021-06-01] MEDS ORDERED: CHLORHEXIDINE 15 ML UDC ONE (10:15)
[2021-06-01] MEDS ORDERED: CHLORHEXIDINE 15 ML UDC PO ONE (10:30)
[2021-06-01] MEDS ORDERED: PROPOFOL 10 MG/ML, 20ML ONE (11:30)
[2021-06-01] MEDS ORDERED: FENTANYL PF 100 MCG/2ML IV PRN (12:00)
[2021-06-01] MEDS ORDERED: PROMETHAZINE 25 MG/ML, 1ML IVPush PRN (12:00)
[2021-06-01] MEDS ORDERED: MIDAZOLAM 1 MG/ML, 2ML IV PRN (12:00)
[2021-06-01] MEDS ORDERED: DIPHENHYDRAMINE 50 MG/ML, 1ML IVPush PRN ×2 (12:00)
[2021-06-01] MEDS ORDERED: EPHEDRINE 50 MG/ML, 1ML IVPush PRN (12:00)
[2021-06-01] MEDS ORDERED: OXYcodone 5 MG/5 ML ORAL.SOL UDC PO PRN (12:00)
[2021-06-01] MEDS ORDERED: ALBUTEROL SULFATE 2.5 MG/3 ML NPPB PRN (12:00)
[2021-06-01] MEDS ORDERED: hydrALAzine 20 MG/ML, 1ML IV PRN (12:00)
[2021-06-01] MEDS ORDERED: PROMETHAZINE 12.5 MG SUPP PR PRN (12:00)
[2021-06-01] MEDS ORDERED: HYDROmorphone 1 MG/ML, 1ML INJ IVPush PRN (12:00)
[2021-06-01] MEDS ORDERED: MEPERIDINE/PF 25MG/0.5ML IVPush PRN (12:00)
[2021-06-01] MEDS ORDERED: LORazepam 2 MG/ML, 1ML IVPush PRN (12:00)
[2021-06-01] MEDS ORDERED: ACETAMINOPHEN 325 MG TABLET PO PRN (12:00)
[2021-06-01] MEDS ORDERED: ONDANSETRON 2MG/ML, 2ML IVPush PRN (12:00)
[2021-06-01] MEDS ORDERED: DIAZEPAM 5 MG/ML, 2ML IVPush PRN (12:00)
[2021-06-01] MEDS ORDERED: LABETALOL 5MG/ML, 20ML IV PRN (12:00)
[2021-06-01] MEDS ORDERED: OXYcodone 5 MG/5 ML ORAL.SOL UDC ONE (12:13)
[2021-06-01 13:06] VITALS: BP 101/70
[2021-06-01] MEDS ORDERED: POTASSIUM CHLORIDE 20 MEQ TAB.ER.PRT PO ONE (14:00)
[2021-06-01 18:38] VITALS: BP 101/70
[2021-06-01] MEDS: OXYcodone IR 5MG TABLET PO PRN (20:47)
[2021-06-02 01:01] VITALS: BP 110/68
[2021-06-02] MEDS: MORPHINE SULFATE 4 MG/ML, 1ML IV PRN ×4 (01:59→23:53)
[2021-06-02] MEDS: OXYcodone IR 5MG TABLET PO PRN ×4 (05:35→18:13)
[2021-06-02 05:36] VITALS: BP 108/70
[2021-06-02] MEDS: HEPARIN 5,000 UNITS/ML, 1ML SQ SCH ×3 (05:36→20:20)
[2021-06-02] MEDS: METOPROLOL TARTRATE 25 MG TAB PO SCH ×2 (05:39→18:14)
[2021-06-02 07:19] VITALS: BP 121/78
[2021-06-02] MEDS: ASPIRIN 81 MG TABLET EC PO SCH (08:36)
[2021-06-02] MEDS: ATORVASTATIN 80 MG TABLET PO SCH (08:37)
[2021-06-02] MEDS: PREGABALIN 150 MG CAPSULE PO SCH ×3 (08:37→20:19)
[2021-06-02] MEDS: CLOPIDOGREL 75 MG TABLET PO SCH (08:37)
[2021-06-02] MEDS: PANTOPRAZOLE 40MG TABLET PO SCH ×2 (08:37→20:19)
[2021-06-02 13:02] VITALS: BP 132/85
[2021-06-02] MEDS: ALPRazolam 1MG TAB PO PRN (18:19)
[2021-06-02 18:23] VITALS: BP 107/70
[2021-06-02] MEDS: ONDANSETRON ODT 4 MG PO PRN (18:28)
[2021-06-02 20:16] VITALS: BP 107/68
[2021-06-03 02:05] VITALS: BP 108/73
[2021-06-03] MEDS: OXYcodone IR 5MG TABLET PO PRN ×4 (02:05→23:31)
[2021-06-03 05:00] VITALS: BP 110/71
[2021-06-03] MEDS: HEPARIN 5,000 UNITS/ML, 1ML SQ SCH ×3 (05:06→20:32)
[2021-06-03] MEDS: METOPROLOL TARTRATE 25 MG TAB PO SCH ×2 (05:07→18:23)
[2021-06-03 06:36] VITALS: BP 132/83
[2021-06-03] MEDS: ATORVASTATIN 80 MG TABLET PO SCH (08:00)
[2021-06-03] MEDS: PREGABALIN 150 MG CAPSULE PO SCH ×3 (08:01→20:32)
[2021-06-03] MEDS: ALPRazolam 1MG TAB PO PRN ×2 (08:01→14:22)
[2021-06-03] MEDS: CLOPIDOGREL 75 MG TABLET PO SCH (08:02)
[2021-06-03] MEDS: MORPHINE SULFATE 4 MG/ML, 1ML IV PRN (08:02)
[2021-06-03] MEDS: PANTOPRAZOLE 40MG TABLET PO SCH ×2 (08:03→20:32)
[2021-06-03] MEDS: ASPIRIN 81 MG TABLET EC PO SCH (08:03)
[2021-06-03 13:58] VITALS: BP 148/80
[2021-06-03 18:24] VITALS: BP 129/73
[2021-06-03 19:08] VITALS: BP 115/77
[2021-06-04] MEDS ORDERED: ACETAMINOPHEN 325 MG TABLET PO PRN
[2021-06-04 01:45] VITALS: BP 107/69
[2021-06-04] MEDS: ALPRazolam 1MG TAB PO PRN (01:50)
[2021-06-04 06:17] VITALS: BP 108/75
[2021-06-04] MEDS: HEPARIN 5,000 UNITS/ML, 1ML SQ SCH ×3 (06:20→20:20)
[2021-06-04] MEDS: METOPROLOL TARTRATE 25 MG TAB PO SCH ×2 (06:20→18:08)
[2021-06-04 07:20] VITALS: BP 106/69
[2021-06-04] MEDS: PREGABALIN 150 MG CAPSULE PO SCH ×3 (08:21→21:49)
[2021-06-04] MEDS: PANTOPRAZOLE 40MG TABLET PO SCH ×2 (08:21→20:19)
[2021-06-04] MEDS: CLOPIDOGREL 75 MG TABLET PO SCH (08:21)
[2021-06-04] MEDS: ATORVASTATIN 80 MG TABLET PO SCH (08:21)
[2021-06-04] MEDS: ASPIRIN 81 MG TABLET EC PO SCH (08:21)
[2021-06-04] MEDS: OXYcodone IR 5MG TABLET PO PRN ×3 (08:25→18:06)
[2021-06-04 13:58] VITALS: BP 97/65
[2021-06-04 18:00] VITALS: BP 114/75
[2021-06-04 20:09] VITALS: BP 117/78
[2021-06-04] MEDS ORDERED: ALPRazolam 1MG TAB PO PRN (20:30)
[2021-06-04] MEDS ORDERED: FENTANYL 12 MCG PATCH TD SCH (20:30)
[2021-06-05 00:35] VITALS: BP 105/69
[2021-06-05 05:34] VITALS: BP 102/63
[2021-06-05] MEDS: HEPARIN 5,000 UNITS/ML, 1ML SQ SCH ×2 (05:36→13:00)
[2021-06-05] MEDS: METOPROLOL TARTRATE 25 MG TAB PO SCH ×2 (05:36→19:11)
[2021-06-05] MEDS: OXYcodone IR 5MG TABLET PO PRN ×4 (05:44→19:43)
[2021-06-05 07:39] VITALS: BP 104/71
[2021-06-05] MEDS: ASPIRIN 81 MG TABLET EC PO SCH (07:41)
[2021-06-05] MEDS: ATORVASTATIN 80 MG TABLET PO SCH (07:41)
[2021-06-05] MEDS: CLOPIDOGREL 75 MG TABLET PO SCH (07:41)
[2021-06-05] MEDS: PREGABALIN 150 MG CAPSULE PO SCH ×2 (07:41→16:16)
[2021-06-05] MEDS: PANTOPRAZOLE 40MG TABLET PO SCH (07:41)
[2021-06-05] MEDS: ONDANSETRON ODT 4 MG PO PRN (11:53)
[2021-06-05 13:18] VITALS: BP 113/78
[2021-06-05] MEDS ORDERED: METHOCARBAMOL 750 MG TABLET PO PRN (13:30)
[2021-06-05] MEDS ORDERED: ONDA4TAB13 PO ×3 (14:39→17:58)
[2021-06-05] MEDS ORDERED: METH-640 PO (14:39)
[2021-06-05] MEDS ORDERED: OXYC10TA6 PO ×3 (14:39→17:58)
[2021-06-05] MEDS ORDERED: PANT40TA6 PO ×3 (14:39→17:58)
[2021-06-05] MEDS ORDERED: ALPR-585 PO ×4 (14:39→17:59)
[2021-06-05] MEDS ORDERED: PREG150C PO ×4 (14:39→17:59)
[2021-06-05] MEDS ORDERED: POLY17PO5 PO (14:39)
[2021-06-05] MEDS ORDERED: FENT1PAT74 TD ×3 (14:39→17:58)
[2021-06-05 19:44] VITALS: BP 115/73
== END 2021-06-05 19:56 | disposition home or self-care (01) | DRG 243 ==
LOC: ED 14:41 → EDIP 14:42 → 5SO 15:59 → 3N 06-02 10:21
PROVIDERS: ADMIT Hospitalist; ATTEND Internal Medicine
PROC: 0DB58ZX Excision of Esophagus, Via Natural or Artificial Opening Endoscopic, Diagnostic (ICD-10-PCS; principal; 2021-06-01 13:00)
DX: K22.8 Other specified diseases of esophagus (principal); G82.20 Paraplegia, unspecified; E46 Unspecified protein-calorie malnutrition; I11.0 Hypertensive heart disease with heart failure; E66.01 Morbid (severe) obesity due to excess calories; I50.9 Heart failure, unspecified; Z20.822 Contact with and (suspected) exposure to COVID-19; Z68.42 Body mass index [BMI] 45.0-49.9, adult; G89.29 Other chronic pain; I25.10 Atherosclerotic heart disease of native coronary artery without angina pectoris; R79.89 Other specified abnormal findings of blood chemistry; E11.9 Type 2 diabetes mellitus without complications; K21.9 Gastro-esophageal reflux disease without esophagitis; M79.7 Fibromyalgia; E78.5 Hyperlipidemia, unspecified; F41.9 Anxiety disorder, unspecified; M54.16 Radiculopathy, lumbar region; F41.1 Generalized anxiety disorder; G47.30 Sleep apnea, unspecified; Z79.899 Other long term (current) drug therapy; Z79.82 Long term (current) use of aspirin; Z88.6 Allergy status to analgesic agent; Z88.8 Allergy status to other drugs, medicaments and biological substances; I25.2 Old myocardial infarction; Z74.01 Bed confinement status; Z87.891 Personal history of nicotine dependence; Z86.73 Personal history of transient ischemic attack (TIA), and cerebral infarction without residual deficits; Z95.1 Presence of aortocoronary bypass graft; Z95.5 Presence of coronary angioplasty implant and graft; Z98.1 Arthrodesis status
CPT/HCPCS: 36415; 74240; 96374; 96375; 99285; C8929; 71045; 76705; 80048; 80053; 80061; 81003; 83036; 83690; 83735; 84443; 84484; 85025; 87635; 88305; 93005; 93970; G0378; J1644; J2405; J2704; J3475; J3480; Q0162; Q9957; J2270; J7040

== ENCOUNTER → 2021-07-05 | Emergency (ER) | payer MEDICARE, MEDICAID ==
[~2021-07-05] VITALS: Ht 167.6 cm; Wt 142.0 kg
[~2021-07-05] MED LIST changes: +ACETAMINOPHEN 500 MG TABLET ONE; +ACETAMINOPHEN 500 MG TABLET PO ONE; +BUPR75TA6 PO; +FENT1PAT74 TD; +FENT1PAT75 TD; +KETOROLAC 30 MG/1 ML IM ONE; +KETOROLAC 30 MG/1 ML ONE; +LORazepam 1MG TABLET ONE; +LORazepam 1MG TABLET PO ONE; +METH-640 PO; +ONDA4TAB13 PO; +OXYC10TA6 PO; +OXYcodone/APAP 5/325MG TABLET ONE; +OXYcodone/APAP 5/325MG TABLET PO ONE; +PANT40TA6 PO; +POLY17PO5 PO; +PREG150C PO
--- NOTE | 2021-07-05 19:06 | NUR ---
BIBA FOR SOB. CONCENTRATOR BROKE AT HOME. PT HAS BEEN WITHOUT OXYGEN FOR 2-3 DAYS AND WAS JUST HOSPITALIZED. RA SATS 90% PER EMS. PT STATES SOB HAS IMPROVED SINCE BEING ON OXYGEN.
[2021-07-05 19:29] LABS: BASOPHILS % (AUTO) 1 % (0-1); EOSINOPHILS % (AUTO) 1 % (1-7); LYMPHOCYTES % (AUTO) 8 % (22-44); MEAN CORPUSCULAR HEMOGLOBIN 26.9 pg (27.0-34.8); MEAN CORPUSCULAR HGB CONC 32.9 g/dL (32.4-35.8); MEAN PLATELET VOLUME 8.2 fL (7.4-10.4); MONOCYTES % (AUTO) 5 % (2-9); NEUTROPHILS % (AUTO) 86 % (42-75); PLATELET COUNT 330 x10^3/uL (130-400); RED BLOOD COUNT 4.69 x10^6/uL (3.82-5.3); RED CELL DISTRIBUTION WIDTH 15.2 % (9.6-15.2)
[2021-07-05 19:38] LABS: ANION GAP 7 mmol/L (5-15); CALCIUM 9.4 mg/dL (8.5-10.1); CHLORIDE 102 mmol/L (98-107)
[2021-07-05 19:44] LABS: ALANINE AMINOTRANSFERASE 19 U/L (12-78); ALKALINE PHOSPHATASE 125 U/L (45-117); BILIRUBIN,TOTAL 0.5 mg/dL (0.2-1.0); CREATININE 0.43 mg/dL (0.55-1.02); TOTAL PROTEIN 7.8 g/dL (6.4-8.2); TROPONIN I 0.045 ng/mL (0.000-0.045)
--- NOTE | 2021-07-05 20:15 | NUR ---
PT ON RA, 88%. PT BED BOUND AND O2 SATS THE SAME WITH MOVEMENT IN BED PT IS ABLE TO DO. MD JACOB
--- NOTE | 2021-07-05 20:49 | NUR ---
throughput rn: faxed over facesheet, 02 order, and clinical screen to [facility]o [facility] fax to set up home 02 for pt.
--- NOTE | 2021-07-05 21:37 | NUR ---
spoke with [facility] and was told that request for home 02 has been escalated and will get a call back with eta of home delivery
--- NOTE | 2021-07-05 22:00 | NUR ---
spoke with [facility] and they stated they will set up home 02 today. they will call back with an eta with 02 delivery to hospital and will meet her at her house to set up home 02 as well. will call deyanira when eta established
--- NOTE | 2021-07-05 22:37 | NUR ---
PT SLEEPING, RESP EVEN AND UNLABORED.
--- NOTE | 2021-07-05 23:45 | NUR ---
pt sleeping. resp even and unlabored. penging home oxygen and ride set up
--- NOTE | 2021-07-06 00:32 | NUR ---
called [facility] on update on home 02. was told they will reach out for the technition and call ED number for update
--- NOTE | 2021-07-06 01:07 | NUR ---
PT RESTING. RESP EVEN AND UNLABORED
--- NOTE | 2021-07-06 02:26 | NUR ---
PT AWAKE, REQUESTING OXY 5 MG FOR BACK PAIN AND STATES SHE TAKES OXY AT HOME. DR THEODORE AWARE AND WILL PLACE ORDERS. PT ALSO MOVED ONTO [facility]
--- NOTE | 2021-07-06 02:57 | NUR ---
REPORT GIVEN TO GONZALO LOPEZ
[2021-07-06 03:01] LABS: TROPONIN I 0.033 ng/mL (0.000-0.045)
--- NOTE | 2021-07-06 03:42 | NUR ---
patient asking for pain medications. Gopi HALL said to give 30 toradol IM once for pain
--- NOTE | 2021-07-06 07:06 | NUR ---
RECEIVED REPORT FROM GONZALO LOPEZ. PT SLEEPING CALMLY ON GURNEY, NAD/VSS, NO NEEDS AT THIS TIME, CALL LIGHT WITHIN REACH.
--- NOTE | 2021-07-06 08:01 | NUR ---
PT MOSTLY SLEEPING BUT AWAKENS & RESPONDS APPROP TO STAFF, NAD, AWAITING HOME O2 DELIVERY, COMFORT MEASURES PROVIDED, CALL LIGHT WITHIN REACH.
--- NOTE | 2021-07-06 08:52 | NUR ---
REPORT GIVEN TO SOURAV LOPEZ
--- NOTE | 2021-07-06 09:00 | NUR ---
RECEIVED REPORT FROM JESSICA GONZALEZ. PT RESTING ON GURNEY W/ AIR MATTRESS UNDERNEATH. NADN. LOPEZ.
--- NOTE | 2021-07-06 09:34 | NUR ---
PT RESTING ON GURNEY. NADN. CHOUDHARYS. PT PROVIDED W/ BREAKFAST TRAY.
--- NOTE | 2021-07-06 09:59 | NUR ---
SPOKE W/ MARCELINO AT [facility] WHO STATES PT'S O2 THROUGH THEM WOULD BE A NEW CONSULT FOR HOME O2. PER VICKI NOTE PT SHOULD BE SET UP FOR NEW HOME O2 THROUGH THEM. PER MARCELINO NEED'S EKG FAXED OVER. PACKET CREATED AND FAXED FOR MARCELINO TO REVIEW. STATES HE WILL CALL BACK W/ UPDATES.
--- NOTE | 2021-07-06 10:06 | NUR ---
PT RESTING ON [facility]. NADN. LOPEZ.
--- NOTE | 2021-07-06 10:27 | NUR ---
ERP DR. SANCHES PRESENTED W/ PT'S CHART FOR FURTHER DISCUSSION AND EVAL.
--- NOTE | 2021-07-06 11:32 | NUR ---
PT RESTING ON [facility]. NADN. LOPEZ.
--- NOTE | 2021-07-06 12:21 | NUR ---
VICKI AT BEDSIDE FOR EVAL MARCELINO FROM [facility] STATES PT DOES NOT QUALIFY FOR O2. PT CURRENTLY BEING TESTED ON RA SATING 90-92% RA. VICKI HUERTA AND ERP DR. SANCHES AWARE.
--- NOTE | 2021-07-06 12:39 | NUR ---
PT PROVIDED W/ LUNCH TRAY. RESTING ON [facility] [facility]. NADN. PT O2 SATS REMAIN 90-91% RA
--- NOTE | 2021-07-06 13:26 | NUR ---
PT C/O LOWER BACK PAIN AND REQUESTING PAIN MEDICATION. PER ERP DR. SANCHES VERBALI ORDER FOR TYLENOL 1000 MG PO ONCE. VERBAL READ BACK.
--- NOTE | 2021-07-06 14:26 | NUR ---
PT RESTING ON GURNEY. NADN. LOPEZ.
--- NOTE | 2021-07-06 15:24 | NUR ---
[facility]. VSS. PT O2 SATS REMAIN 90-92% RA
--- NOTE | 2021-07-06 16:33 | NUR ---
PT RESTING ON [facility]. NADN. LOPEZ.
[2021-07-06 17:49] VITALS: BP 149/80
--- NOTE | 2021-07-06 17:49 | NUR ---
PT RESTING ON [facility]. NADN. LOPEZ. PT PROVIDED W/ DINNER TRAY.
== END ==
LOC: ED 22:05 → UNDOADMOB 07-06 10:38 → EDIP 07-06 10:38 → INTOOBSV 07-06 10:38
DX: R09.02 Hypoxemia (principal); I11.0 Hypertensive heart disease with heart failure; I50.9 Heart failure, unspecified; I25.10 Atherosclerotic heart disease of native coronary artery without angina pectoris; I25.2 Old myocardial infarction; E11.9 Type 2 diabetes mellitus without complications; K21.9 Gastro-esophageal reflux disease without esophagitis
CPT/HCPCS: 36415; 71045; 80053; 84484; 85025; 93005; 96372; 99285; J1885